=== PATIENT | female | born 1980 | race Caucasian/White ===

== ENCOUNTER 2017-01-23 06:12 | Emergency (ER) | payer BC, OTHER ==
[2017-01-23] MEDS ORDERED: Naloxone 0.4 MG/ML Syringe ONE (06:17)
[2017-01-23] MEDS ORDERED: Naloxone 0.4 MG/ML Syringe IVPUSH ONE (06:18)
[2017-01-23] MEDS ORDERED: Sodium Chloride 0.9% 1,000 ML IV ONE (06:18)
[2017-01-23] MEDS ORDERED: Sodium Chloride 0.9% 10 ML Syringe FLUSH PRN (06:18)
[2017-01-23] MEDS ORDERED: Sodium Chloride 0.9% 2.5 ML Syringe FLUSH PRN (06:18)
--- NOTE | 2017-01-23 06:26 | EDM.PDOC ---
ED HPI GENERAL MEDICAL PROBLEM - General Chief Complaint: Drug or Alcohol Abuse Stated Complaint: OVERDOSE Time Seen by Provider: 01/23/17 06:15 - History of Present Illness INITIAL COMMENTS - FREE TEXT/NARRATIVE: HISTORY AND PHYSICAL: History of present illness: The patient is a 36-year-old female who presents via EMS after her woke this morning at his usual time and found her in the bathroom with altered mental status and multiple pills on the floor. According to his testimony she has not been depressed recently and has no history but did have a prescription that was dated November 29 of this year for alprazolam 0.25 milligrams and the dispensed amount was #300 on November 29, 2016. They're only 3 of these tablets left but there were some on the floor as well. The patient also had a bottle which I saw of unknown white pills as well as Zofran. On EMS arrival she was with diminished mental status but was breathing spontaneously and remove the nasal trumpet. She was moving all extremities but not appropriately. The patient did not have any vomiting in route and further history will be obtained from the once available. According to the parents whom I spoke with the patient does have a history of a suicide attempt in 2002 she attempted to hang herself but she has not been currently exhibiting any signs of depression that they're aware of. The time of ingestion and exactly what she ingested( i.e. if she ingested other medications that we are unaware of) is unknown Review of systems: As per history of present illness and below otherwise all systems reviewed and negative. Past medical history: As per history of present illness and as reviewed below otherwise noncontributory. Surgical history: As per history of present illness and as reviewed below otherwise noncontributory. Social history: No reported history of drug or alcohol abuse. Family history: As per history of present illness and as reviewed below otherwise noncontributory. Physical exam: Gen.: Well-developed overweight female who is nontoxic and unresponsive to voice but does move arms and legs spontaneously but inappropriately. She is maintaining her airway and vital signs of been reviewed by me. HEENT: Atraumatic, normocephalic, pupils are mid range and sluggish negative for conjunctival pallor or scleral icterus, mucous membranes moist, throat clear , neck supple, nontender, trachea midline. Lungs: Clear to auscultation, breath sounds equal bilaterally, chest nontender. Breath sounds are diminished but there is no work of breathing. Heart: S1S2, regular, negative for clicks, rubs, or JVD. Abdomen: Soft, nondistended, nontender. Negative for masses or hepatosplenomegaly. Negative for costovertebral tenderness. Pelvis: Stable nontender. Genitourinary: Deferred. Rectal: Deferred. Extremities: Atraumatic, negative for cords or calf pain. Neurovascular unremarkable. Full range of motion passively and there is no bony tenderness defects or deformities appreciated Neuro: Difficult exam as patient does not follow commands and currently her Meeker Coma Scale is a 78. She is maintaining her airway and breathing spontaneously but will plan to electively intubate her. Skin: Normal turgor no evidence of any rashes or lesions and no visible evidence of any trauma is seen. Back: There is no visible evidence of any external trauma such as bruises abrasions and there are no midline deficits or defects in the thoracic or lumbar spine. Diagnostics: EKG CBC CMP EtOH aspirin and Tylenol levels TSH UA UDS UCG portable chest x-ray Therapeutics: IV O2 monitor IV fluids 0617: Case was discussed with Dr. Hung at [facility] ER and he accepts the patient for transfer. The flight team has been notified and on their arrival we will electively intubate this patient for transfer. I discussed with parents the current situation and the need for elective intubation and transfer and they were comfortable with this care plan. Currently the went home to get some information and is not present. 0638: Flight team is here at bedside and would like to hold giving any Narcan as we plan on intubating. They're going to perform this procedure which is being done semi-electively for her diminished mental status although she is arousable now to voice but is not purposeful and is still maintaining her airway with stable vitals. I will follow-up all testing results as they become available and we will do a portable chest x-ray prior to departure. Impression: Drug overdose with altered mental status Definitive disposition and diagnosis as appropriate pending reevaluation and review of above. - Related Data Allergies Allergy/AdvReac Type Severity Reaction Status Date / Time acetaminophen [From Tylenol] Allergy Hives Verified 01/24/16 12:44 Antihistamines - Alkylamine Allergy Anaphylactic Verified 01/24/16 12:44 Shock Opioids - Morphine Analogues Allergy Anaphylactic Verified 01/24/16 12:44 Shock Penicillins Allergy Rash Verified 01/24/16 12:44 phenytoin sodium Allergy Hives Verified 01/24/16 12:44 [From Dilantin] phenytoin sodium extended Allergy Hives Verified 01/24/16 12:44 [From Dilantin] vanilla whitfield Allergy Rash Uncoded 01/25/16 14:35 Home Meds: Home Meds ALPRAZolam [Xanax] 0.25 mg PO QID PRN 01/24/16 [History] Citalopram Hydrobromide [Celexa] 40 mg PO DAILY 01/24/16 [History] Past Medical History - Past Health History Medical/Surgical History: Denies Medical/Surgical History Other HEENT History: wears glasses Cardiovascular History: Reports: None Respiratory History: Reports: None Gastrointestinal History: Reports: None Genitourinary History: Reports: None AV SPECIALIST History: Reports: Musculoskeletal History: Reports: Fracture Other Musculoskeletal History: bilateral clavicles, ribs Neurological History: Reports: Headaches, Chronic, Seizure Other Neuro History: hx of one seizure at age 19 from alcohol poisening Psychiatric History: Reports: Anxiety, Depression Endocrine/Metabolic History: Reports: Obesity/BMI 30+ Hematologic History: Reports: None Immunologic History: Reports: None Oncologic (Cancer) History: Reports: None Dermatologic History: Reports: None - Infectious Disease History Infectious Disease History: Reports: Chicken Pox, MRSA - Past Surgical History HEENT Surgical History: Reports: Myringotomy w Tube(s), Tonsillectomy, Other ( See Below) Social & Family History - Family History Family Medical History: Noncontributory - Tobacco Use Smoking Status *Q: Current Every Day Smoker Years of Tobacco use: 11 Packs/Tins Daily: 0.8 - Recreational Drug Use Recreational Drug Use: No Drug Use in Last 12 Months: No ED ROS GENERAL - Review of Systems Review Of Systems: ROS reveals no pertinent complaints other than HPI. ED EXAM, GENERAL - Physical Exam Exam: See Below (See dictation) Course - Orders/Labs/Meds Orders: Active Orders 24 hr Category Date Time Status Cardiac Monitoring [RC] . DIRECTED Care 01/23/17 06:15 Active EKG Documentation Completion [RC] STAT Care 01/23/17 06:15 Active Oxygen Therapy, ED [RC] ASDIRECTED Care 01/23/17 06:15 Active Pulse Oximetry [RC] ASDIRECTED Care 01/23/17 06:15 Active Chest 1V Frontal [CR] Stat Exams 01/23/17 06:16 Ordered ACETAMINOPHEN [CHEM] Stat Lab 01/23/17 06:15 Ordered CBC WITH AUTO DIFF [HEME] Stat Lab 01/23/17 06:15 Ordered COMPREHENSIVE METABOLIC PN,CMP [CHEM] Stat Lab 01/23/17 06:15 Ordered DRUG SCREEN, URINE [URCHEM] Stat Lab 01/23/17 06:16 Uncollected ETHANOL BLOOD MEDICAL [CHEM] Stat Lab 01/23/17 06:15 Ordered HCG QUALITATIVE,URINE [URCHEM] Stat Lab 01/23/17 06:16 Uncollected SALICYLATE [CHEM] Stat Lab 01/23/17 06:15 Ordered TSH [CHEM] Stat Lab 01/23/17 06:15 Ordered UA W/MICROSCOPIC [URIN] Stat Lab 01/23/17 06:16 Uncollected Sodium Chloride 0.9% [Normal Saline] 1,000 ml Med 01/23/17 06:18 Active IV STAT Sodium Chloride 0.9% [Saline Flush] Med 01/23/17 06:18 Active 10 ml FLUSH ASDIRECTED PRN Sodium Chloride 0.9% [Saline Flush] Med 01/23/17 06:18 Active 2.5 ml FLUSH ASDIRECTED PRN Saline Lock Insert [OM.PC] Stat Oth 01/23/17 06:15 Ordered Medication Orders Sodium Chloride (Normal Saline) 1,000 mls @ 999 mls/hr IV STAT ONE Stop: 01/23/17 07:18 Sodium Chloride (Saline Flush) 10 ml FLUSH ASDIRECTED PRN PRN Reason: Keep Vein Open Sodium Chloride (Saline Flush) 2.5 ml FLUSH ASDIRECTED PRN PRN Reason: Keep Vein Open Meds: Medications Generic Name Dose Route Start Last Admin Trade Name Freq PRN Reason Stop Dose Admin Sodium Chloride 1,000 mls @ 999 mls/hr 01/23/17 06:18 Normal Saline IV 01/23/17 07:18 STAT ONE Sodium Chloride 10 ml 01/23/17 06:18 Saline Flush FLUSH ASDIRECTED PRN Keep Vein Open Sodium Chloride 2.5 ml 01/23/17 06:18 Saline Flush FLUSH ASDIRECTED PRN Keep Vein Open Discontinued Medications Generic Name Dose Route Start Last Admin Trade Name Neris PRN Reason Stop Dose Admin Naloxone HCl 2 mg 01/23/17 06:18 Narcan IVPUSH 01/23/17 06:19 ONETIME ONE Naloxone HCl Confirm 01/23/17 06:17 Narcan Administered 01/23/17 06:18 Dose 2 mg .ROUTE .STK-MED ONE Departure - Departure Time of Disposition: 06:41 Disposition: DC/Tfer to Acute Hospital 02 Condition: Critical Clinical Impression: Drug overdose Qualifiers: Encounter type: initial encounter Injury intent: undetermined intent Qualified Code(s): T50.904A - Poisoning by unspecified drugs, medicaments and biological substances, undetermined, initial encounter - Discharge Information Referrals: Esme Reaves NP [Primary Care Provider] - Forms: ED Department Discharge - My Orders Last 24 Hours: My Active Orders 01/23/17 06:15 Cardiac Monitoring [RC] . DIRECTED EKG Documentation Completion [RC] STAT Oxygen Therapy, ED [RC] ASDIRECTED Pulse Oximetry [RC] ASDIRECTED ACETAMINOPHEN [CHEM] Stat CBC WITH AUTO DIFF [HEME] Stat COMPREHENSIVE METABOLIC PN,CMP [CHEM] Stat ETHANOL BLOOD MEDICAL [CHEM] Stat SALICYLATE [CHEM] Stat TSH [CHEM] Stat Saline Lock Insert [OM.PC] Stat 01/23/17 06:16 Chest 1V Frontal [CR] Stat DRUG SCREEN, URINE [URCHEM] Stat HCG QUALITATIVE,URINE [URCHEM] Stat UA W/MICROSCOPIC [URIN] Stat 01/23/17 06:18 Sodium Chloride 0.9% [Normal Saline] 1,000 ml IV STAT Sodium Chloride 0.9% [Saline Flush] 10 ml FLUSH ASDIRECTED PRN Sodium Chloride 0.9% [Saline Flush] 2.5 ml FLUSH ASDIRECTED PRN - Assessment/Plan Last 24 Hours: My Active Orders 01/23/17 06:15 Cardiac Monitoring [RC] . DIRECTED EKG Documentation Completion [RC] STAT Oxygen Therapy, ED [RC] ASDIRECTED Pulse Oximetry [RC] ASDIRECTED ACETAMINOPHEN [CHEM] Stat CBC WITH AUTO DIFF [HEME] Stat COMPREHENSIVE METABOLIC PN,CMP [CHEM] Stat ETHANOL BLOOD MEDICAL [CHEM] Stat SALICYLATE [CHEM] Stat TSH [CHEM] Stat Saline Lock Insert [OM.PC] Stat 01/23/17 06:16 Chest 1V Frontal [CR] Stat DRUG SCREEN, URINE [URCHEM] Stat HCG QUALITATIVE,URINE [URCHEM] Stat UA W/MICROSCOPIC [URIN] Stat 01/23/17 06:18 Sodium Chloride 0.9% [Normal Saline] 1,000 ml IV STAT Sodium Chloride 0.9% [Saline Flush] 10 ml FLUSH ASDIRECTED PRN Sodium Chloride 0.9% [Saline Flush] 2.5 ml FLUSH ASDIRECTED PRN
[2017-01-23 07:01] LABS: CHLORIDE,CL 106 mmol/L (98-110); SODIUM,NA 139 mmol/L (136-146)
[2017-01-23 07:04] LABS: ACETAMINOPHEN < 3.0 ug/mL
--- NOTE | 2017-01-23 07:30 | PCM.SN ---
- Free Text/Narrative Note: Called by ER for help establishing emergent airway. Prior to our arrival flight team had attempted intubation and failed. On my arrival BVM respiration being performed with copious vomit noted, SpO2 75% at this time. Aggressive oral suctioning was performed then glide scope #3 attempted grade II view with copious vomit noted in the airway, however due to the severe anterior angle we were unable to place ETT. 11 OA was placed, BVM respirations were resumed, further oral suctioning was performed to help clear vomit. Once SpO2 had reached 85%, intubation was again attempted using glidescope #3, now there is no view, copious vomit is again noted, blind placement of 7.5 ETT cuffed was done. +BBS, +EtCO2 was noted. Chest X-ray is pending. Copious stomach contents was clear from the lungs via in-line ETT suctioning. OGT was placed were additional gastric content was suctioning via LIS. Currently HR - 80, SpO2 - 100% via FiO2 100% and RR - controlled 20. BP - 117/79.
[2017-01-23 09:36] VITALS: BP 131/66
--- NOTE | 2017-01-23 14:50 | CR ---
EXAM DATE: 01/23/17 PATIENT'S AGE: 36 Patient: BRITTANY VALDES Facility: [place], [place] Site . Site : [id number] Study: XRay Chest [id number]/31/2017 7:26:21 AM Ordering Physician: Doctor Vieira Final Report: INDICATION: Post intubation COMPARISON: none TECHNIQUE: Portable AP supine chest performed at 7:25 a.m. FINDINGS: The tip of the endotracheal tube lies 4.8 cm above the gilberto. There has been passage of a nasogastric decompression tube into the stomach. The lungs are clear. The heart, mediastinum and pulmonary vessels are of normal size. There is no evidence of pleural fluid. IMPRESSION: Proper position of endotracheal tube and nasogastric tube. Heart and lungs appear normal. Dictated by Shin Leonard MD @ Jan 23 2017 7:26AM (Electronic Signature) Report Signed by Proxy. NEVAEH
== END 2017-01-23 07:30 ==
LOC: MW.ED 06:12
DX: T42.4X1A Poisoning by benzodiazepines, accidental (unintentional), initial encounter (principal); T45.0X1A Poisoning by antiallergic and antiemetic drugs, accidental (unintentional), initial encounter; F17.210 Nicotine dependence, cigarettes, uncomplicated; Z88.6 Allergy status to analgesic agent; Z88.5 Allergy status to narcotic agent; Z88.0 Allergy status to penicillin; Z79.899 Other long term (current) drug therapy; Z96.22 Myringotomy tube(s) status; F41.9 Anxiety disorder, unspecified; F32.9 Major depressive disorder, single episode, unspecified; E66.9 Obesity, unspecified; Z98.890 Other specified postprocedural states
CPT/HCPCS: 31500; 36415; 51702; 71010; 80053; 80305; 81001; 81025; 84443; 85025; 93005; 96360; 99291; 99292; G0480; J7040; 99285

== ENCOUNTER 2017-05-20 13:47 | Emergency (ER) | payer BC ==
[2017-05-20] MEDS ORDERED: Sodium Chloride 0.9% 10 ML Syringe FLUSH PRN (15:03)
[2017-05-20] MEDS ORDERED: Sodium Chloride 0.9% 2.5 ML Syringe FLUSH PRN (15:03)
[2017-05-20] MEDS ORDERED: Ondansetron 4 MG/2 ML SDV IVPUSH ONE (15:06)
--- NOTE | 2017-05-20 15:06 | EDM.PDOC ---
ED HPI GENERAL MEDICAL PROBLEM - General Chief Complaint: Abdominal Pain Stated Complaint: PAIN ON LEFT SIDE OF ABDOMEN AND BACK Time Seen by Provider: 05/20/17 15:04 Source of Information: Reports: Patient History Limitations: Reports: No Limitations - History of Present Illness INITIAL COMMENTS - FREE TEXT/NARRATIVE: HISTORY AND PHYSICAL: []37-year-old female presenting with left-sided and mid abdominal pain. History of Present Illness: []Pain started on 2 days ago after she was eating. Review of Systems: As per history of present illness and below otherwise all systems reviewed and negative. Past medical history: As per history of present illness and as reviewed below otherwise noncontributory. Surgical history: As per history of present illness and as reviewed below otherwise noncontributory. Social history: No reported history of drug or alcohol abuse. Family history: As per history of present illness and as reviewed below otherwise noncontributory. Physical exam: Patient looks to be distressed she looks like she has been crying. She is alert and oriented answering questions appropriately in full sentences without shortness of breath. HEENT: Atraumatic, normocehpalic, pupils reactive, negative for conjunctival pallor or scleral icterus, mucous membranes moist, throat clear, neck supple, nontender, trachea midline. Lungs: Clear to auscultation, breath sounds equal bilaterally, chest non tender. Heart: S1S2, regular, negative for clicks, rubs, or JVD. Abdomen: Soft, nondistended, tender with palpation to the right epigastric area. Negative for masses or hepatossplenmegaly. Negative for costovertebral tenderness. Pelvis: Stable nontender. Genitourinary: Deferred. Rectal: Deferred Extremities: Atraumatic, negative for cords or calf pain. Neurovascular unremarkable. Neuro: Awake, alert, oriented. Cranial nerves II through XII unremarkable. Cerebellum unremarkable. Motor and sensory unremarkable throughout. Exam nonfocal. Diagnostics: [CBC CMP amylase lipase CT urinalysis hCG Limited abdominal ultrasound] Therapeutics: []Zofran morphine Impression: [] Plan: [] Definitive disposition and diagnosis as appropriate pending reevaluation and review of above. Onset: Sudden (4days) abdominal pain Pain Score (Numeric/FACES): 8 - Related Data Allergies Allergy/AdvReac Type Severity Reaction Status Date / Time acetaminophen [From Tylenol] Allergy Hives Verified 05/20/17 13:58 Antihistamines - Alkylamine Allergy Anaphylactic Verified 05/20/17 13:58 Shock Opioids - Morphine Analogues Allergy Anaphylactic Verified 05/20/17 13:58 Shock Penicillins Allergy Rash Verified 05/20/17 13:58 phenytoin sodium Allergy Hives Verified 05/20/17 13:58 [From Dilantin] phenytoin sodium extended Allergy Hives Verified 05/20/17 13:58 [From Dilantin] vanilla whitfield Allergy Rash Uncoded 05/20/17 13:58 Home Meds: Home Meds Ondansetron [Zofran ODT] 4 mg PO Q8H #12 tab.dis 05/20/17 [Rx] Sertraline HCl [Zoloft] 100 mg PO DAILY 05/20/17 [History] Past Medical History - Past Health History Medical/Surgical History: Denies Medical/Surgical History Other HEENT History: wears glasses Cardiovascular History: Reports: None Respiratory History: Reports: None Gastrointestinal History: Reports: None Genitourinary History: Reports: None 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: Musculoskeletal History: Reports: Fracture Other Musculoskeletal History: bilateral clavicles, ribs Neurological History: Reports: Headaches, Chronic, Seizure Other Neuro History: hx of one seizure at age 19 from alcohol poisening Psychiatric History: Reports: Anxiety, Depression Endocrine/Metabolic History: Reports: Obesity/BMI 30+ Hematologic History: Reports: None Immunologic History: Reports: None Oncologic (Cancer) History: Reports: None Dermatologic History: Reports: None - Infectious Disease History Infectious Disease History: Reports: None - Past Surgical History Head Surgeries/Procedures: Reports: None HEENT Surgical History: Reports: Myringotomy w Tube(s), Tonsillectomy GI Surgical History: Reports: Appendectomy Musculoskeletal Surgical History: Reports: Shoulder Surgery Social & Family History - Family History Family Medical History: Noncontributory - Tobacco Use Smoking Status *Q: Current Every Day Smoker Years of Tobacco use: 10 Packs/Tins Daily: 0.5 - Caffeine Use Caffeine Use: Reports: Soda - Recreational Drug Use Recreational Drug Use: No Drug Use in Last 12 Months: No ED ROS GENERAL - Review of Systems Review Of Systems: ROS reveals no pertinent complaints other than HPI. ED EXAM, GI/ABD - Physical Exam Exam: See Below (see dictation) Course - Vital Signs Last Recorded V/S: Last Vital Signs Temp 36.6 C 05/20/17 16:44 Pulse 62 05/20/17 16:44 Resp 18 05/20/17 13:59 BP 115/38 L 05/20/17 16:44 Pulse Ox 97 05/20/17 16:44 - Orders/Labs/Meds Orders: Active Orders 24 hr Category Date Time Status Abdomen Ltd [US] Stat Exams 05/20/17 15:03 Taken Chest 2V [CR] Stat Exams 05/20/17 15:03 Taken Sodium Chloride 0.9% [Saline Flush] Med 05/20/17 15:03 Active 10 ml FLUSH ASDIRECTED PRN Sodium Chloride 0.9% [Saline Flush] Med 05/20/17 15:03 Active 2.5 ml FLUSH ASDIRECTED PRN Saline Lock Insert [OM.PC] Stat Oth 05/20/17 15:03 Ordered Medication Orders Sodium Chloride (Saline Flush) 10 ml FLUSH ASDIRECTED PRN PRN Reason: Keep Vein Open Sodium Chloride (Saline Flush) 2.5 ml FLUSH ASDIRECTED PRN PRN Reason: Keep Vein Open Labs: Laboratory Tests 05/20/17 05/20/17 05/20/17 Range/Units 14:50 14:50 15:12 WBC 9.14 (4.0-11.0) K/uL RBC 5.09 (4.30-5.90) M/uL Hgb 15.1 (12.0-16.0) g/dL Hct 44.9 (36.0-46.0) % MCV 88.2 (80.0-98.0) fL MCH 29.7 (27.0-32.0) pg MCHC 33.6 (31.0-37.0) g/dL RDW Std Deviation 44.2 (28.0-62.0) fl RDW Coeff of John 14 (11.0-15.0) % Plt Count 283 (150-400) K/uL MPV 11.10 (7.40-12.00) fL Add Manual Diff YES Neutrophils % (Manual) 49 (48.0-80.0) % Band Neutrophils % 9 % Lymphocytes % (Manual) 33 (16.0-40.0) % Monocytes % (Manual) 3 (0.0-15.0) % Eosinophils % (Manual) 2 (0.0-7.0) % Basophils % (Manual) 4 H (0.0-1.5) % Nucleated RBC % 0.0 /100WBC Absolute Seg Neuts 4.5 (1.4-5.7) Band Neutrophils # 0.8 Lymphocytes # (Manual) 3.0 H (0.6-2.4) Monocytes # (Manual) 0.3 (0.0-0.8) Eosinophils # (Manual) 0.2 (0.0-0.7) Basophils # (Manual) 0.4 H (0.0-0.1) Nucleated RBCs # 0 K/uL Sodium (136-146) mmol/L Potassium (3.5-5.1) mmol/L Chloride (98-110) mmol/L Carbon Dioxide (21-31) mmol/L BUN (6.0-23.0) mg/dL Creatinine (0.6-1.5) mg/dL Est Cr Clr Drug Dosing mL/min Estimated GFR (MDRD) ml/min Glucose (60-110) mg/dL Calcium (8.8-10.8) mg/dL Total Bilirubin (0.1-1.5) mg/dL AST (5-40) IU/L ALT (8-54) IU/L Alkaline Phosphatase (40-150) Total Protein (6.0-8.0) g/dL Albumin (3.5-5.0) g/dL Globulin (2.0-3.5) g/dL Albumin/Globulin Ratio (1.3-2.8) Amylase (10-90) U/L Lipase (7-80) U/L Urine Color YELLOW Urine Appearance CLOUDY Urine pH 6.0 (5.0-8.0) Ur Specific [place] >= 1.030 (1.001-1.035) Urine Protein NEGATIVE (NEGATIVE) mg/dL Urine Glucose (UA) NEGATIVE (NEGATIVE) mg/dL Urine Ketones NEGATIVE (NEGATIVE) mg/dL Urine Occult Blood NEGATIVE (NEGATIVE) Urine Nitrite NEGATIVE (NEGATIVE) Urine Bilirubin NEGATIVE (NEGATIVE) Urine Urobilinogen 0.2 (<2.0) EU/dL Ur Leukocyte Esterase MODERATE (NEGATIVE) Urine RBC 0-1 (0-2/HPF) Urine WBC 50-55 (0-5/HPF) Ur Epithelial Cells FEW (NONE-FEW) Urine Bacteria 1+ H (NEGATIVE) Urine HCG, Qual NEGATIVE (NEGATIVE) 05/20/17 Range/Units 15:12 WBC (4.0-11.0) K/uL RBC (4.30-5.90) M/uL Hgb (12.0-16.0) g/dL Hct (36.0-46.0) % MCV (80.0-98.0) fL MCH (27.0-32.0) pg MCHC (31.0-37.0) g/dL RDW Std Deviation (28.0-62.0) fl RDW Coeff of John (11.0-15.0) % Plt Count (150-400) K/uL MPV (7.40-12.00) fL Add Manual Diff Neutrophils % (Manual) (48.0-80.0) % Band Neutrophils % % Lymphocytes % (Manual) (16.0-40.0) % Monocytes % (Manual) (0.0-15.0) % Eosinophils % (Manual) (0.0-7.0) % Basophils % (Manual) (0.0-1.5) % Nucleated RBC % /100WBC Absolute Seg Neuts (1.4-5.7) Band Neutrophils # Lymphocytes # (Manual) (0.6-2.4) Monocytes # (Manual) (0.0-0.8) Eosinophils # (Manual) (0.0-0.7) Basophils # (Manual) (0.0-0.1) Nucleated RBCs # K/uL Sodium 138 (136-146) mmol/L Potassium 3.9 (3.5-5.1) mmol/L Chloride 108 (98-110) mmol/L Carbon Dioxide 21 (21-31) mmol/L BUN 14 (6.0-23.0) mg/dL Creatinine 0.7 (0.6-1.5) mg/dL Est Cr Clr Drug Dosing 100.94 mL/min Estimated GFR (MDRD) > 60.0 ml/min Glucose 121 H (60-110) mg/dL Calcium 9.1 (8.8-10.8) mg/dL Total Bilirubin 0.5 (0.1-1.5) mg/dL AST 23 (5-40) IU/L ALT 32 (8-54) IU/L Alkaline Phosphatase 78 (40-150) Total Protein 7.0 (6.0-8.0) g/dL Albumin 4.3 (3.5-5.0) g/dL Globulin 2.7 (2.0-3.5) g/dL Albumin/Globulin Ratio 1.6 (1.3-2.8) Amylase 24 (10-90) U/L Lipase < 9 (7-80) U/L Urine Color Urine Appearance Urine pH (5.0-8.0) Ur Specific [place] (1.001-1.035) Urine Protein (NEGATIVE) mg/dL Urine Glucose (UA) (NEGATIVE) mg/dL Urine Ketones (NEGATIVE) mg/dL Urine Occult Blood (NEGATIVE) Urine Nitrite (NEGATIVE) Urine Bilirubin (NEGATIVE) Urine Urobilinogen (<2.0) EU/dL Ur Leukocyte Esterase (NEGATIVE) Urine RBC (0-2/HPF) Urine WBC (0-5/HPF) Ur Epithelial Cells (NONE-FEW) Urine Bacteria (NEGATIVE) Urine HCG, Qual (NEGATIVE) Meds: Medications Generic Name Dose Route Start Last Admin Trade Name Freq PRN Reason Stop Dose Admin Sodium Chloride 10 ml 05/20/17 15:03 Saline Flush FLUSH ASDIRECTED PRN Keep Vein Open Sodium Chloride 2.5 ml 05/20/17 15:03 Saline Flush FLUSH ASDIRECTED PRN Keep Vein Open Discontinued Medications Generic Name Dose Route Start Last Admin Trade Name Freq PRN Reason Stop Dose Admin Ketorolac Tromethamine 30 mg 05/20/17 15:08 05/20/17 15:34 Toradol IVPUSH 05/20/17 15:09 30 mg ONETIME ONE Administration Ondansetron HCl 4 mg 05/20/17 15:06 05/20/17 15:35 Zofran IVPUSH 05/20/17 15:07 4 mg ONETIME ONE Administration Departure - Departure Time of Disposition: 16:52 Disposition: Home, Self-Care 01 Condition: Good Clinical Impression: Abdominal pain Qualifiers: Abdominal location: right upper quadrant Qualified Code(s): R10.11 - Right upper quadrant pain - Discharge Information Prescriptions: Ondansetron [Zofran ODT] 4 mg PO Q8H #12 tab.dis Referrals: PCP,None [Primary Care Provider] - Forms: ED Department Discharge Additional Instructions: The following information is given to patients seen in the emergency department who are being discharged to home. This information is to outline your options for follow-up care. We provide all patients seen in our emergency department with a follow-up referral. The need for follow-up, as well as the timing and circumstances, are variable depending upon the specifics of your emergency department visit. If you don't have a primary care physician on staff, we will provide you with a referral. We always advise you to contact your personal physician following an emergency department visit to inform them of the circumstance of the visit and for follow-up with them and/or the need for any referrals to a consulting specialist. The emergency department will also refer you to a specialist when appropriate. This referral assures that you have the opportunity for followup care with a specialist. All of these measure are taken in an effort to provide you with optimal care, which includes your followup. Under all circumstances we always encourage you to contact your private physician who remains a resource for coordinating your care. When calling for followup care, please make the office aware that this follow-up is from your recent emergency room visit. If for any reason you are refused follow-up, please contact the [facility] emergency department at and asked to speak to the emergency department charge nurse. Prescription has been written for hydrocodone/APAP 10/325 one 3 times a day when necessary pain #12 no refill Prescription for ODT Zofran 4 mg electronically [facility] Follow-up with your primary care provider in 2-3 days - My Orders Last 24 Hours: My Active Orders 05/20/17 15:03 Abdomen Ltd [US] Stat Chest 2V [CR] Stat Sodium Chloride 0.9% [Saline Flush] 10 ml FLUSH ASDIRECTED PRN Sodium Chloride 0.9% [Saline Flush] 2.5 ml FLUSH ASDIRECTED PRN Saline Lock Insert [OM.PC] Stat - Assessment/Plan Last 24 Hours: My Active Orders 05/20/17 15:03 Abdomen Ltd [US] Stat Chest 2V [CR] Stat Sodium Chloride 0.9% [Saline Flush] 10 ml FLUSH ASDIRECTED PRN Sodium Chloride 0.9% [Saline Flush] 2.5 ml FLUSH ASDIRECTED PRN Saline Lock Insert [OM.PC] Stat
[2017-05-20] MEDS ORDERED: Ketorolac 30 MG/ML SDV IVPUSH ONE (15:08)
[2017-05-20 15:42] LABS: CHLORIDE,CL 108 mmol/L (98-110); SODIUM,NA 138 mmol/L (136-146)
[2017-05-20 16:45] VITALS: BP 115/38
--- NOTE | 2017-05-21 08:09 | CR ---
EXAM DATE: 05/20/17 PATIENT'S AGE: 37 Patient: BRITTANY VALDES Facility: [place], [place] Site . Site : 1980 Study: XRay Chest [id number] 3:55:47 PM Ordering Physician: Doctor Vieira Final Report: INDICATION: Pain. Technique: PA and lateral chest x-ray. Findings: Platelike atelectasis lower retrosternal region on lateral view. Lungs otherwise clear. Heart size normal. Chest otherwise negative without acute disease. Dictated by Daniel Helton MD @ May 20 2017 4:11PM (Electronic Signature) Report Signed by Proxy. NEVAEH
--- NOTE | 2017-05-21 08:10 | US ---
EXAM DATE: 05/20/17 PATIENT'S AGE: 37 Patient: BRITTANY VALDES Facility: [place], [place] Site . Site : 1980 Study: US Abdomen [id number] 4:25:27 PM Ordering Physician: Doctor Vieira Final Report: INDICATION: ABD PAIN INDICATION: Abdominal pain. FINDINGS: The liver is echogenic consistent with diffuse fatty infiltration. No large masses or intrahepatic biliary dilatation is identified. The gallbladder is partially fluid-filled, no gallstones or wall thickening is identified. The common bile duct is normal at 5 mm. The pancreas is not well seen due to obscuring bowel gas. The right kidney is 11.6 cm in length and there is no hydronephrosis. IMPRESSION: Fatty infiltration of the liver is identified. No gallstones or biliary dilatation is seen. No abnormal fluid collections are seen. Dictated by Darin Garica MD @ 05/20/2017 4:47:34 PM Dictated by: Darin Garcia MD @ 05/20/2017 16:47:39 (Electronic Signature) Report Signed by Proxy. [facility]
== END 2017-05-20 17:15 | disposition home or self-care (01) ==
LOC: MW.ED 13:47
DX: R10.11 Right upper quadrant pain (principal); F17.210 Nicotine dependence, cigarettes, uncomplicated; Z88.0 Allergy status to penicillin; Z88.5 Allergy status to narcotic agent; Z88.8 Allergy status to other drugs, medicaments and biological substances; Z79.899 Other long term (current) drug therapy
CPT/HCPCS: 36415; 71020; 76705; 80053; 81001; 81025; 82150; 83690; 85025; 87086; 96374; 96375; 99284; J1885; J2405

== ENCOUNTER 2017-08-26 11:24 | Emergency (ER) | payer BC ==
[2017-08-26] MEDS ORDERED: Ketorolac 30 MG/ML SDV IVPUSH ONE (12:30)
[2017-08-26] MEDS ORDERED: Sodium Chloride 0.9% 1,000 ML IV ONE (12:30)
[2017-08-26] MEDS ORDERED: Ondansetron 4 MG/2 ML SDV IVPUSH ONE (12:30)
--- NOTE | 2017-08-26 12:32 | EDM.PDOC ---
ED HPI GENERAL MEDICAL PROBLEM - General Chief Complaint: Headache Stated Complaint: MIGRAINE FOR 3 DAYS Time Seen by Provider: 08/26/17 12:00 Source of Information: Reports: Patient History Limitations: Reports: No Limitations - History of Present Illness INITIAL COMMENTS - FREE TEXT/NARRATIVE: HISTORY AND PHYSICAL: History of present illness: [Patient comes to the emergency room complaining of a migraine headache. Has been present for the last 3 days. She has taken Aleve and ibuprofen without improvement in her symptoms. This is not the worst headache she ever had. She has a history of migraine headaches that occur occasionally. Usually she can improve with [id number] NSAIDs, but this time it has been ineffective. No blurred vision or double vision. She has not recently been ill or had any infections. No fever or chills. Denies face pain, runny nose sore, throat cough and earaches. No nausea or vomiting. She denies light sensitivity but complains of sensitivity to sound. No abdominal pain chest pain shortness of breath or difficulty breathing. She is allergic to many medications which are updated in her chart. She typically follows with Esme Reaves in [place]. Denies and. Started today.] Review of systems: As per history of present illness and below otherwise all systems reviewed and negative. Past medical history: As per history of present illness and as reviewed below otherwise noncontributory. Surgical history: As per history of present illness and as reviewed below otherwise noncontributory. Social history: No reported history of drug or alcohol abuse. Family history: As per history of present illness and as reviewed below otherwise noncontributory. Physical exam: HEENT: Atraumatic, normocephalic. TMs are pearly mcmillan and without erythema bilaterally. Oral mucous membranes are pink and moist without tonsillar swelling erythema or exudate. Neck supple no lymphadenopathy. Face is nontender with palpation. No broken or decaying teeth. PERRLA. EOMI. Lungs: Clear to auscultation, breath sounds equal bilaterally. Heart: S1S2, regular rate and rhythm. Abdomen: Soft, nondistended, nontender. Pelvis: Stable nontender. Genitourinary: Deferred. Rectal: Deferred. Extremities: Atraumatic, full range of motion no abnormalities noted. Neurovascular unremarkable. Neuro: Awake, alert, oriented. Motor and sensory unremarkable throughout. Exam nonfocal. Therapeutics: [1 L normal saline, 4 mg Zofran IV, Toradol 30 mg IV] Impression: [Headache] Plan: [Patient feels significantly improved following fluids and medications. Would like to be discharged home. She is instructed to go home to rest in a cool, dark room and take home meds prn. She is in agreement w/ today's plan. F/u w/ PCP Strict return precautions are reviewed. ] Definitive disposition and diagnosis as appropriate pending reevaluation and review of above. Headache Pain Score (Numeric/FACES): 6 - Related Data Allergies Allergy/AdvReac Type Severity Reaction Status Date / Time acetaminophen [From Tylenol] Allergy Hives Verified 08/26/17 11:40 Antihistamines - Alkylamine Allergy Anaphylactic Verified 08/26/17 11:40 Shock Opioids - Morphine Analogues Allergy Anaphylactic Verified 08/26/17 11:40 Shock Penicillins Allergy Rash Verified 08/26/17 11:40 phenytoin sodium Allergy Hives Verified 08/26/17 11:40 [From Dilantin] phenytoin sodium extended Allergy Hives Verified 08/26/17 11:40 [From Dilantin] vanilla whitfield Allergy Rash Uncoded 08/26/17 11:40 Home Meds: Home Meds Ondansetron [Zofran ODT] 4 mg PO Q8H #12 tab.dis 05/20/17 [Rx] Sertraline HCl [Zoloft] 100 mg PO DAILY 05/20/17 [History] Levothyroxine 25 mcg PO ACBREAKFAST 08/26/17 [History] metFORMIN [Glucophage] 500 mg PO TID 08/26/17 [History] Past Medical History - Past Health History Medical/Surgical History: Denies Medical/Surgical History Other HEENT History: wears glasses Cardiovascular History: Reports: None Respiratory History: Reports: None Gastrointestinal History: Reports: None Genitourinary History: Reports: None 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: Reports: Polycystic Ovaries, Musculoskeletal History: Reports: Fracture Other Musculoskeletal History: bilateral clavicles, ribs Neurological History: Reports: Headaches, Chronic, Seizure Other Neuro History: hx of one seizure at age 19 from alcohol poisening Psychiatric History: Reports: Anxiety, Depression Endocrine/Metabolic History: Reports: Obesity/BMI 30+ Hematologic History: Reports: None Immunologic History: Reports: None Oncologic (Cancer) History: Reports: None Dermatologic History: Reports: None - Infectious Disease History Infectious Disease History: Reports: Chicken Pox - Past Surgical History Head Surgeries/Procedures: Reports: None HEENT Surgical History: Reports: Myringotomy w Tube(s), Tonsillectomy GI Surgical History: Reports: Appendectomy Musculoskeletal Surgical History: Reports: Shoulder Surgery Social & Family History - Family History Family Medical History: Noncontributory - Tobacco Use Smoking Status *Q: Current Every Day Smoker Years of Tobacco use: 10 Packs/Tins Daily: 0.5 - Caffeine Use Caffeine Use: Reports: None - Recreational Drug Use Recreational Drug Use: No Drug Use in Last 12 Months: No ED ROS GENERAL - Review of Systems Review Of Systems: ROS reveals no pertinent complaints other than HPI. - Physical Exam Exam: See Below Course - Vital Signs Last Recorded V/S: Last Vital Signs Temp 98.0 F 08/26/17 14:15 Pulse 62 08/26/17 14:15 Resp 16 08/26/17 14:15 BP 115/65 08/26/17 14:15 Pulse Ox 98 08/26/17 14:15 - Orders/Labs/Meds Meds: Medications Discontinued Medications Generic Name Dose Route Start Last Admin Trade Name Freq PRN Reason Stop Dose Admin Sodium Chloride 1,000 mls @ 999 mls/hr 08/26/17 12:30 08/26/17 12:45 Normal Saline IV 08/26/17 13:30 999 mls/hr STAT ONE Administration Ketorolac Tromethamine 30 mg 08/26/17 12:30 08/26/17 12:52 Toradol IVPUSH 08/26/17 12:31 30 mg ONETIME ONE Administration Ondansetron HCl 4 mg 08/26/17 12:30 08/26/17 12:47 Zofran IVPUSH 08/26/17 12:31 4 mg ONETIME ONE Administration Departure - Departure Time of Disposition: 13:50 Disposition: Home, Self-Care 01 Condition: Good Clinical Impression: Headache - Discharge Information Instructions: Migraine Headache Referrals: Esme Reaves ARABIC PROFESSOR [Primary Care Provider] - Forms: ED Department Discharge Additional Instructions: The following information is given to patients seen in the emergency department who are being discharged to home. This information is to outline your options for follow-up care. We provide all patients seen in our emergency department with a follow-up referral. The need for follow-up, as well as the timing and circumstances, are variable depending upon the specifics of your emergency department visit. If you don't have a primary care physician on staff, we will provide you with a referral. We always advise you to contact your personal physician following an emergency department visit to inform them of the circumstance of the visit and for follow-up with them and/or the need for any referrals to a consulting specialist. The emergency department will also refer you to a specialist when appropriate. This referral assures that you have the opportunity for follow-up care with a specialist. All of these measure are taken in an effort to provide you with optimal care, which includes your follow-up. Under all circumstances we always encourage you to contact your private physician who remains a resource for coordinating your care. When calling for follow-up care, please make the office aware that this follow-up is from your recent emergency room visit. If for any reason you are refused follow-up, please contact the [facility] emergency department at and asked to speak to the emergency department charge nurse. [facility] [address] [place] [id number] Follow-up with your primary care provider or at the clinic listed above in 48- 72 hours. Go home and rest in a cool dark room. Continue her home medications. Return to ER as needed as discussed.
[2017-08-26 14:31] VITALS: BP 115/65
== END 2017-08-26 14:15 | disposition home or self-care (01) ==
LOC: MW.ED 11:24
DX: R51 Headache (principal); F17.210 Nicotine dependence, cigarettes, uncomplicated; F32.9 Major depressive disorder, single episode, unspecified; Z79.899 Other long term (current) drug therapy; Z91.018 Allergy to other foods; Z88.0 Allergy status to penicillin; Z88.5 Allergy status to narcotic agent; Z88.6 Allergy status to analgesic agent; Z88.8 Allergy status to other drugs, medicaments and biological substances
CPT/HCPCS: 96361; 96374; 96375; 99283; J1885; J2405; J7040

== ENCOUNTER 2017-09-21 13:36 | Emergency (ER) | payer BC ==
[2017-09-21] MEDS ORDERED: methylPREDNISolone Sodium Succinate 125 MG/2 ML SDV IVPUSH ONE (13:37)
[2017-09-21] MEDS ORDERED: Albuterol/Ipratropium 3.0-0.5 MG/3 ML Neb Soln NEB ONE (13:38)
--- NOTE | 2017-09-21 13:39 | EDM.PDOC ---
ED HPI GENERAL MEDICAL PROBLEM - General Chief Complaint: Respiratory Problem Stated Complaint: SHORTNESS OF BREATH Time Seen by Provider: 09/21/17 13:39 Source of Information: Reports: Patient - History of Present Illness INITIAL COMMENTS - FREE TEXT/NARRATIVE: HISTORY AND PHYSICAL: History of present illness: [Patient presents from only physical shortness of breath and cough She is nicotine dependent female she did receive a DuoNeb influenza and strep testing well at the [facility] physical walk-in clinic which were negative She complains of chest chest tightness but is able speak in full sentences no accessory muscles she does have persistent cough no fever nausea vomiting chills sweats no chest pain headache dizziness or palpitation no bowel or urine symptoms ] Review of systems: As per history of present illness and below otherwise all systems reviewed and negative. Past medical history: As per history of present illness and as reviewed below otherwise noncontributory. Surgical history: As per history of present illness and as reviewed below otherwise noncontributory. Social history: No reported history of drug or alcohol abuse. Family history: As per history of present illness and as reviewed below otherwise noncontributory. Physical exam: HEENT: Atraumatic, normocephalic, pupils reactive, negative for conjunctival pallor or scleral icterus, mucous membranes moist, throat clear, neck supple, nontender, trachea midline. Lungs: Clear to auscultation, breath sounds equal bilaterally, chest nontender.post DuoNeb and Solu-Medrol Heart: S1S2, regular, negative for clicks, rubs, or JVD. Abdomen: Soft, nondistended, nontender. Negative for masses or hepatosplenomegaly. Negative for costovertebral tenderness. Pelvis: Stable nontender. Genitourinary: Deferred. Rectal: Deferred. Extremities: Atraumatic, negative for cords or calf pain. Neurovascular unremarkable. Neuro: Awake, alert, oriented. Cranial nerves II through XII unremarkable. Cerebellum unremarkable. Motor and sensory unremarkable throughout. Exam nonfocal. Diagnostics: [ CBC CMP troponin EKG Chest 1 view ] Therapeutics: [DuoNeb Solu-Medrol 125 mg IVZ-Panchito 250 mg dosing Z-Panchito Medrol Dosepak HFA Impression: [ acute bronchitis ] Definitive disposition and diagnosis as appropriate pending reevaluation and review of above. - Related Data Allergies Allergy/AdvReac Type Severity Reaction Status Date / Time acetaminophen [From Tylenol] Allergy Hives Verified 09/21/17 13:41 Antihistamines - Alkylamine Allergy Anaphylactic Verified 09/21/17 13:41 Shock Opioids - Morphine Analogues Allergy Anaphylactic Verified 09/21/17 13:41 Shock Penicillins Allergy Rash Verified 09/21/17 13:41 phenytoin sodium Allergy Hives Verified 09/21/17 13:41 [From Dilantin] phenytoin sodium extended Allergy Hives Verified 09/21/17 13:41 [From Dilantin] vanilla whitfield Allergy Rash Uncoded 09/21/17 13:41 Home Meds: Home Meds Sertraline HCl [Zoloft] 100 mg PO DAILY 05/20/17 [History] Levothyroxine 25 mcg PO ACBREAKFAST 08/26/17 [History] metFORMIN [Glucophage] 500 mg PO TID 08/26/17 [History] Past Medical History - Past Health History Medical/Surgical History: Denies Medical/Surgical History Other HEENT History: wears glasses Cardiovascular History: Reports: None Respiratory History: Reports: None Gastrointestinal History: Reports: None Genitourinary History: Reports: None [employer] History: Reports: Polycystic Ovaries, Musculoskeletal History: Reports: Fracture Other Musculoskeletal History: bilateral clavicles, ribs Neurological History: Reports: Headaches, Chronic, Seizure Other Neuro History: hx of one seizure at age 19 from alcohol poisening Psychiatric History: Reports: Anxiety, Depression Endocrine/Metabolic History: Reports: Obesity/BMI 30+ Hematologic History: Reports: None Immunologic History: Reports: None Oncologic (Cancer) History: Reports: None Dermatologic History: Reports: None - Infectious Disease History Infectious Disease History: Reports: Chicken Pox - Past Surgical History Head Surgeries/Procedures: Reports: None HEENT Surgical History: Reports: Myringotomy w Tube(s), Tonsillectomy GI Surgical History: Reports: Appendectomy Musculoskeletal Surgical History: Reports: Shoulder Surgery Social & Family History - Family History Family Medical History: Noncontributory - Tobacco Use Smoking Status *Q: Current Every Day Smoker Years of Tobacco use: 10 Packs/Tins Daily: 0.5 - Caffeine Use Caffeine Use: Reports: None - Recreational Drug Use Recreational Drug Use: No Drug Use in Last 12 Months: No ED ROS GENERAL - Review of Systems Review Of Systems: ROS reveals no pertinent complaints other than HPI. ED EXAM, GENERAL - Physical Exam Exam: See Below Course - Vital Signs Last Recorded V/S: Last Vital Signs Temp 98.4 F 09/21/17 13:38 Pulse 106 H 09/21/17 13:38 Resp 22 H 09/21/17 13:38 BP 137/67 09/21/17 13:38 Pulse Ox 97 09/21/17 13:38 - Orders/Labs/Meds Orders: Active Orders 24 hr Category Date Time Status EKG Documentation Completion [RC] STAT Care 09/21/17 13:38 Active RT Aerosol Therapy [RC] ASDIRECTED Care 09/21/17 13:38 Active UA W/MICROSCOPIC [URIN] Stat Lab 09/21/17 13:38 Ordered Labs: Laboratory Tests 09/21/17 09/21/17 Range/Units 13:49 13:49 WBC 7.86 (4.0-11.0) K/uL RBC 5.02 (4.30-5.90) M/uL Hgb 14.3 (12.0-16.0) g/dL Hct 42.8 (36.0-46.0) % MCV 85.3 (80.0-98.0) fL MCH 28.5 (27.0-32.0) pg MCHC 33.4 (31.0-37.0) g/dL RDW Std Deviation 42.0 (28.0-62.0) fl RDW Coeff of John 14 (11.0-15.0) % Plt Count 258 (150-400) K/uL MPV 11.30 (7.40-12.00) fL Neut % (Auto) 61.2 (48.0-80.0) % Lymph % (Auto) 26.5 (16.0-40.0) % Bond % (Auto) 9.5 (0.0-15.0) % Eos % (Auto) 2.4 (0.0-7.0) % Baso % (Auto) 0.4 (0.0-1.5) % Neut # (Auto) 4.8 (1.4-5.7) K/uL Lymph # (Auto) 2.1 (0.6-2.4) K/uL Bond # (Auto) 0.8 (0.0-0.8) K/uL Eos # (Auto) 0.2 (0.0-0.7) K/uL Baso # (Auto) 0.0 (0.0-0.1) K/uL Nucleated RBC % 0.0 /100WBC Nucleated RBCs # 0 K/uL Sodium 136 (136-145) mmol/L Potassium 3.4 L (3.5-5.1) mmol/L Chloride 100 (98-107) mmol/L Carbon Dioxide 26.2 (21.0-32.0) mmol/L BUN 11 (7.0-18.0) mg/dL Creatinine 0.9 (0.6-1.0) mg/dL Est Cr Clr Drug Dosing 78.51 mL/min Estimated GFR (MDRD) > 60.0 ml/min Glucose 240 H (74-106) mg/dL Calcium 9.3 (8.5-10.1) mg/dL Total Bilirubin 0.3 (0.2-1.0) mg/dL AST 23 (15-37) IU/L ALT 36 (14-63) IU/L Alkaline Phosphatase 88 (46-116) U/L Troponin I < 0.050 (0.000-0.056) ng/mL Total Protein 7.4 (6.4-8.2) g/dL Albumin 3.8 (3.4-5.0) g/dL Globulin 3.6 H (2.0-3.5) g/dL Albumin/Globulin Ratio 1.1 L (1.3-2.8) Meds: Medications Discontinued Medications Generic Name Dose Route Start Last Admin Trade Name Freq PRN Reason Stop Dose Admin Albuterol/Ipratropium 3 ml 09/21/17 13:38 09/21/17 13:52 Duoneb 3.0-0.5 Mg/3 Ml NEB 09/21/17 13:39 3 ml ONETIME ONE Administration Methylprednisolone Sodium Succinate 125 mg 09/21/17 13:37 09/21/17 13:54 Solu-Medrol IVPUSH 09/21/17 13:38 125 mg ONETIME ONE Administration Departure - Departure Time of Disposition: 15:03 Disposition: Home, Self-Care 01 Condition: Good Clinical Impression: Acute bronchitis - Discharge Information Forms: ED Department Discharge Additional Instructions: The following information is given to patients seen in the emergency department who are being discharged to home. This information is to outline your options for follow-up care. We provide all patients seen in our emergency department with a follow-up referral. The need for follow-up, as well as the timing and circumstances, are variable depending upon the specifics of your emergency department visit. If you don't have a primary care physician on staff, we will provide you with a referral. We always advise you to contact your personal physician following an emergency department visit to inform them of the circumstance of the visit and for follow-up with them and/or the need for any referrals to a consulting specialist. The emergency department will also refer you to a specialist when appropriate. This referral assures that you have the opportunity for follow-up care with a specialist. All of these measure are taken in an effort to provide you with optimal care, which includes your follow-up. Under all circumstances we always encourage you to contact your private physician who remains a resource for coordinating your care. When calling for follow-up care, please make the office aware that this follow-up is from your recent emergency room visit. If for any reason you are refused follow-up, please contact the [facility] emergency department at and asked to speak to the emergency department charge nurse. - My Orders Last 24 Hours: My Active Orders 09/21/17 13:38 EKG Documentation Completion [RC] STAT RT Aerosol Therapy [RC] ASDIRECTED UA W/MICROSCOPIC [URIN] Stat - Assessment/Plan Last 24 Hours: My Active Orders 09/21/17 13:38 EKG Documentation Completion [RC] STAT RT Aerosol Therapy [RC] ASDIRECTED UA W/MICROSCOPIC [URIN] Stat
--- NOTE | 2017-09-21 14:25 | CR ---
EXAMINATION: Portable chest radiograph. HISTORY: Shortness of breath. Comparison: 05/20/2017. FINDINGS: The trachea is midline. The cardiomediastinal silhouette is within normal limits. No pulmonary infilt rates, effusions or pneumothorax. Osseous structures appear unremarkable. IMPRESSION: No acute cardiopulmonary process.
[2017-09-21 14:34] LABS: CHLORIDE,CL 100 mmol/L (98-107); SODIUM,NA 136 mmol/L (136-145)
[2017-09-21 15:39] VITALS: BP 125/70
== END 2017-09-21 15:20 | disposition home or self-care (01) ==
LOC: MW.ED 13:36
DX: J20.9 Acute bronchitis, unspecified (principal); F17.210 Nicotine dependence, cigarettes, uncomplicated; F32.9 Major depressive disorder, single episode, unspecified; Z88.8 Allergy status to other drugs, medicaments and biological substances; Z88.6 Allergy status to analgesic agent; Z88.5 Allergy status to narcotic agent; Z79.899 Other long term (current) drug therapy; Z79.84 Long term (current) use of oral hypoglycemic drugs; Z88.0 Allergy status to penicillin
CPT/HCPCS: 36415; 71045; 80053; 81001; 84484; 85025; 93005; 94640; 96374; 99285; J2930; 99283

== ENCOUNTER 2018-02-05 11:26 | Emergency (ER) | payer SELFPAY ==
--- NOTE | 2018-02-05 11:36 | EDM.PDOC ---
ED HPI GENERAL MEDICAL PROBLEM - General Stated Complaint: HEADACHES Time Seen by Provider: 02/05/18 11:27 Source of Information: Reports: Patient History Limitations: Reports: No Limitations - History of Present Illness INITIAL COMMENTS - FREE TEXT/NARRATIVE: HISTORY AND PHYSICAL: History of present illness: Patient is a 37-year-old female who presents to the emergency room with complaints of migraine headache. She states she has had a dull migraine since and has not found any relief with [id number] medications. She has light sensitivity, noise sensitivity and nausea. She does have a history of migraine headaches but states that these are infrequent. She denies any fever, chills, chest pain or shortness of breath. Denies any abdominal pain, vomiting, diarrhea or constipation. Review of systems: As per history of present illness and below otherwise all systems reviewed and negative. Past medical history: As per history of present illness and as reviewed below otherwise noncontributory. Surgical history: As per history of present illness and as reviewed below otherwise noncontributory. Social history: No reported history of drug or alcohol abuse. Family history: As per history of present illness and as reviewed below otherwise noncontributory. Physical exam: General: Well developed and well nourished 37 year old female. Alert and orientated. Nontoxic appearing and in no acute distress. HEENT: Atraumatic, normocephalic, pupils equal and reactive bilaterally, negative for conjunctival pallor or scleral icterus, mucous membranes moist, throat clear, neck supple, nontender, trachea midline. No drooling or trismus noted. No meningeal signs Lungs: Clear to auscultation, breath sounds equal bilaterally, chest nontender. Heart: S1S2, regular rate and rhythm without overt murmur Abdomen: Soft, nondistended, nontender. Negative for masses or hepatosplenomegaly. Negative for costovertebral tenderness. Pelvis: Stable nontender. Genitourinary: Deferred. Rectal: Deferred. Skin: Intact, warm, dry. No lesions or rashes noted. Extremities: Atraumatic, negative for cords or calf pain. Neurovascular unremarkable. Neuro: Awake, alert, oriented. Cranial nerves II through XII unremarkable. Cerebellum unremarkable. Motor and sensory unremarkable throughout. Exam nonfocal. Notes: Discussed performing a head CT, risks versus benefits were reviewed, at this time she declines. She does have a ride home we'll give her IV fluids and medications. Diagnostics: None Therapeutics: IV fluid, Toradol, Zofran, Ativan Prescription: None Impression: Migraine Plan: 1. Please take the remainder of the day to rest in a dark quiet room. Avoid stimulating activities (screen time, etc...) 2. Follow up with your primary care provider in the next 1-2 days. Return to the ED as needed and as discussed. Definitive disposition and diagnosis as appropriate pending reevaluation and review of above. Duration: Day(s): Location: Reports: Head headache Pain Score (Numeric/FACES): 8 - Related Data Allergies Allergy/AdvReac Type Severity Reaction Status Date / Time acetaminophen [From Tylenol] Allergy Hives Verified 02/05/18 11:49 Antihistamines - Alkylamine Allergy Anaphylactic Verified 02/05/18 11:49 Shock Opioids - Morphine Analogues Allergy Anaphylactic Verified 02/05/18 11:49 Shock Penicillins Allergy Rash Verified 02/05/18 11:49 phenytoin sodium Allergy Hives Verified 02/05/18 11:49 [From Dilantin] phenytoin sodium extended Allergy Hives Verified 02/05/18 11:49 [From Dilantin] vanilla whitfield Allergy Rash Uncoded 09/21/17 13:41 Home Meds: Home Meds Sertraline HCl [Zoloft] 100 mg PO DAILY 05/20/17 [History] Past Medical History - Past Health History Medical/Surgical History: Denies Medical/Surgical History Other HEENT History: wears glasses Cardiovascular History: Reports: None Respiratory History: Reports: None Gastrointestinal History: Reports: None Genitourinary History: Reports: None [employer] BU[employer]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 History: Reports: Polycystic Ovaries, Musculoskeletal History: Reports: Fracture Other Musculoskeletal History: bilateral clavicles, ribs Neurological History: Reports: Headaches, Chronic, Seizure Other Neuro History: hx of one seizure at age 19 from alcohol poisening Psychiatric History: Reports: Anxiety, Depression Endocrine/Metabolic History: Reports: Obesity/BMI 30+ Hematologic History: Reports: None Immunologic History: Reports: None Oncologic (Cancer) History: Reports: None Dermatologic History: Reports: None - Infectious Disease History Infectious Disease History: Reports: Chicken Pox - Past Surgical History Head Surgeries/Procedures: Reports: None HEENT Surgical History: Reports: Myringotomy w Tube(s), Tonsillectomy GI Surgical History: Reports: Appendectomy Musculoskeletal Surgical History: Reports: Shoulder Surgery Social & Family History - Family History Family Medical History: Noncontributory - Caffeine Use Caffeine Use: Reports: None ED ROS GENERAL - Review of Systems Review Of Systems: ROS reveals no pertinent complaints other than HPI. - Physical Exam Exam: See Below (See dictation) Course - Vital Signs Last Recorded V/S: Last Vital Signs Temp 97.8 F 02/05/18 11:49 Pulse 77 02/05/18 13:20 Resp 20 02/05/18 13:20 BP 112/78 02/05/18 13:20 Pulse Ox 98 02/05/18 13:20 - Orders/Labs/Meds Meds: Medications Discontinued Medications Generic Name Dose Route Start Last Admin Trade Name Neris PRN Reason Stop Dose Admin Sodium Chloride 1,000 mls @ 999 mls/hr 02/05/18 11:45 02/05/18 12:16 Normal Saline IV 02/05/18 12:45 999 mls/hr STAT ONE Administration Ketorolac Tromethamine 30 mg 02/05/18 11:45 02/05/18 12:16 Toradol IVPUSH 02/05/18 11:46 30 mg ONETIME ONE Administration Lorazepam 0.5 mg 02/05/18 12:11 02/05/18 13:03 Ativan IVPUSH 02/05/18 12:12 0.5 mg ONETIME ONE Administration Ondansetron HCl 4 mg 02/05/18 11:45 02/05/18 12:16 Zofran IVPUSH 02/05/18 11:46 4 mg ONETIME ONE Administration Departure - Departure Time of Disposition: 12:11 Disposition: Home, Self-Care 01 Clinical Impression: Migraine - Discharge Information Instructions: Migraine Headache, [id number] Referrals: PCP,None [Primary Care Provider] - Forms: ED Department Discharge Additional Instructions: The following information is given to patients seen in the emergency department who are being discharged to home. This information is to outline your options for follow-up care. We provide all patients seen in our emergency department with a follow-up referral. The need for follow-up, as well as the timing and circumstances, are variable depending upon the specifics of your emergency department visit. If you don't have a primary care physician on staff, we will provide you with a referral. We always advise you to contact your personal physician following an emergency department visit to inform them of the circumstance of the visit and for follow-up with them and/or the need for any referrals to a consulting specialist. The emergency department will also refer you to a specialist when appropriate. This referral assures that you have the opportunity for follow-up care with a specialist. All of these measure are taken in an effort to provide you with optimal care, which includes your follow-up. Under all circumstances we always encourage you to contact your private physician who remains a resource for coordinating your care. When calling for follow-up care, please make the office aware that this follow-up is from your recent emergency room visit. If for any reason you are refused follow-up, please contact the [facility] Emergency Department at and asked to speak to the emergency department charge nurse. [facility] [address] [place] [id number] 1. Please take the remainder of the day to rest in a dark quiet room. Avoid stimulating activities (screen time, etc...) 2. Follow up with your primary care provider in the next 1-2 days. Return to the ED as needed and as discussed.
[2018-02-05] MEDS ORDERED: Sodium Chloride 0.9% 1,000 ML IV ONE (11:45)
[2018-02-05] MEDS ORDERED: Ketorolac 30 MG/ML SDV IVPUSH ONE (11:45)
[2018-02-05] MEDS ORDERED: Ondansetron 4 MG/2 ML SDV IVPUSH ONE (11:45)
[2018-02-05] MEDS ORDERED: LORazepam 2 MG/ML SDV IVPUSH ONE (12:11)
[2018-02-05 14:13] VITALS: BP 112/78
== END 2018-02-05 13:26 | disposition home or self-care (01) ==
LOC: MW.ED 11:26
DX: G43.909 Migraine, unspecified, not intractable, without status migrainosus (principal); E66.9 Obesity, unspecified; Z88.0 Allergy status to penicillin; Z88.8 Allergy status to other drugs, medicaments and biological substances; Z88.5 Allergy status to narcotic agent
CPT/HCPCS: 96361; 96374; 96375; 99283; J1885; J2060; J2405; J7040

== ENCOUNTER 2019-02-04 07:05 | Emergency (ER) | payer SELFPAY ==
[2019-02-04 07:21] VITALS: BP 138/71; PULSE 91
--- NOTE | 2019-02-04 08:00 | EDM.PDOC ---
ED HPI GENERAL MEDICAL PROBLEM - General Chief Complaint: Upper Extremity Injury/Pain Stated Complaint: RING FINGER ON RIGHT HAND- POSSIBLY BROKEN Time Seen by Provider: 02/04/19 07:26 Source of Information: Reports: Patient History Limitations: Reports: No Limitations - History of Present Illness INITIAL COMMENTS - FREE TEXT/NARRATIVE: History of present illness: []Patient was walking her dog and the leash pulled her right ring finger and wrist. Swelling of her wrist but mild swelling of the distal tip of her ring finger. He denies any numbness or tingling or any other injuries. no Lacerations. Review of systems: As per history of present illness and below otherwise all systems reviewed and negative. Past medical history: As per history of present illness and as reviewed below otherwise noncontributory. Surgical history: As per history of present illness and as reviewed below otherwise noncontributory. Social history: No reported history of drug or alcohol abuse. Family history: As per history of present illness and as reviewed below otherwise noncontributory. Physical exam: General: Well developed, well nourished in NAD HEENT: Atraumatic, normocephalic, pupils reactive, negative for conjunctival pallor or scleral icterus, mucous membranes moist, throat clear, neck supple, nontender, trachea midline. Lungs: Clear to auscultation, breath sounds equal bilaterally, chest nontender. Heart: S1S2, regular, negative for clicks, rubs, or JVD. Abdomen: NABS, Soft, nondistended, nontender. Negative for masses or hepatosplenomegaly. Negative for costovertebral tenderness. Pelvis: Stable nontender. Genitourinary: Deferred. Rectal: Deferred. Extremities: Mild erythema of the right ring finger distal tip, no lacerations brisk capillary refill and sensations intact. Mild wrist tenderness on the ulnar aspect no swelling she has full range of motion and there is no crepitance. Pulses are intact negative for cords or calf pain. Neurovascular unremarkable. Neuro: Awake, alert, oriented. Cranial nerves II through XII unremarkable. Cerebellum unremarkable. Motor and sensory unremarkable throughout. Exam nonfocal. Skin:warm and dry Diagnostics: X-ray right hand no acute fractures Therapeutics: Declined pain meds, finger splint ED Course: Stable Impression: Finger contusion Prescriptions: None Plan: Take meds as directed, follow up with your primary care physician, return to ER if symptoms worsen or change. Definitive disposition and diagnosis as appropriate pending reevaluation and review of above. Right Finger-Ring Pain Score (Numeric/FACES): 6 - Related Data Allergies Allergy/AdvReac Type Severity Reaction Status Date / Time acetaminophen [From Tylenol] Allergy Hives Verified 02/04/19 07:13 Antihistamines - Alkylamine Allergy Anaphylactic Verified 02/04/19 07:13 Shock Opioids - Morphine Analogues Allergy Anaphylactic Verified 02/04/19 07:13 Shock Penicillins Allergy Rash Verified 02/04/19 07:13 phenytoin sodium Allergy Hives Verified 02/04/19 07:13 [From Dilantin] phenytoin sodium extended Allergy Hives Verified 02/04/19 07:13 [From Dilantin] vanilla whitfield Allergy Rash Uncoded 02/04/19 07:13 Home Meds: Home Meds Sertraline HCl [Zoloft] 100 mg PO DAILY 05/20/17 [History] Acetaminophen/Butalbital/Caff [Fioricet 325-50-40 MG] 1 each PO ASDIRECTED 02/04 [History] Topiramate [Topamax] 50 mg PO BID 02/04/19 [History] Past Medical History - Past Health History Medical/Surgical History: Denies Medical/Surgical History HEENT History: Reports: Other (See Below) Other HEENT History: wears glasses Cardiovascular History: Reports: None Respiratory History: Reports: None Gastrointestinal History: Reports: None Genitourinary History: Reports: None 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: Polycystic Ovaries, Musculoskeletal History: Reports: Fracture Other Musculoskeletal History: bilateral clavicles, ribs Neurological History: Reports: Headaches, Chronic, Seizure Other Neuro History: hx of one seizure at age 19 from alcohol poisening Psychiatric History: Reports: Anxiety, Depression Endocrine/Metabolic History: Reports: Obesity/BMI 30+ Hematologic History: Reports: None Immunologic History: Reports: None Oncologic (Cancer) History: Reports: None Dermatologic History: Reports: None - Infectious Disease History Infectious Disease History: Reports: Chicken Pox - Past Surgical History Head Surgeries/Procedures: Reports: None HEENT Surgical History: Reports: Myringotomy w Tube(s), Tonsillectomy GI Surgical History: Reports: Appendectomy Musculoskeletal Surgical History: Reports: Shoulder Surgery Social & Family History - Family History Family Medical History: Noncontributory - Tobacco Use Smoking Status *Q: Current Every Day Smoker Years of Tobacco use: 15 Packs/Tins Daily: 0.5 - Caffeine Use Caffeine Use: Reports: None - Recreational Drug Use Recreational Drug Use: No Review of Systems - Review of Systems Review Of Systems: See Below ED EXAM, GENERAL - Physical Exam Exam: See Below Course - Vital Signs Last Recorded V/S: Last Vital Signs Temp 96.1 F 02/04/19 07:12 Pulse 91 02/04/19 07:12 Resp 18 02/04/19 07:12 BP 138/71 02/04/19 07:12 Pulse Ox 97 02/04/19 07:12 - Orders/Labs/Meds Orders: Active Orders 24 hr Category Date Time Status Splinting [RC] ASDIRECTED Care 02/04/19 08:23 Active Departure - Departure Time of Disposition: 08:22 Disposition: Home, Self-Care 01 Condition: Good Clinical Impression: Finger contusion Qualifiers: Encounter type: initial encounter Finger: ring finger Damage to nail status: without damage Laterality: right Qualified Code(s): S60.041A - Contusion of right ring finger without damage to nail, initial encounter Clinical Impression: (Ruled Out): Hand contusion - Discharge Information *PRESCRIPTION DRUG MONITORING PROGRAM REVIEWED*: No *COPY OF PRESCRIPTION DRUG MONITORING REPORT IN PATIENT ZABRINA: No Instructions: Hand Contusion, [id number] Referrals: Esme Reaves NP [Primary Care Provider] - Forms: ED Department Discharge Additional Instructions: The following information is given to patients seen in the emergency department who are being discharged to home. This information is to outline your options for follow-up care. We provide all patients seen in our emergency department with a follow-up referral. The need for follow-up, as well as the timing and circumstances, are variable depending upon the specifics of your emergency department visit. If you don't have a primary care physician on staff, we will provide you with a referral. We always advise you to contact your personal physician following an emergency department visit to inform them of the circumstance of the visit and for follow-up with them and/or the need for any referrals to a consulting specialist. The emergency department will also refer you to a specialist when appropriate. This referral assures that you have the opportunity for follow-up care with a specialist. All of these measure are taken in an effort to provide you with optimal care, which includes your follow-up. Under all circumstances we always encourage you to contact your private physician who remains a resource for coordinating your care. When calling for follow-up care, please make the office aware that this follow-up is from your recent emergency room visit. If for any reason you are refused follow-up, please contact the [facility] Emergency Department at and asked to speak to the emergency department charge nurse. Take meds as directed, follow up with your primary care physician, return to ER if symptoms worsen or change. [facility] Primary Care [address] [place] [id number] - My Orders Last 24 Hours: My Active Orders 02/04/19 08:23 Splinting [RC] ASDIRECTED - Assessment/Plan Last 24 Hours: My Active Orders 02/04/19 08:23 Splinting [RC] ASDIRECTED
--- NOTE | 2019-02-04 08:17 | CR ---
INDICATION: Hand injury. COMPARISON: none TECHNIQUE: Three-view right hand FINDINGS: The bones are anatomically aligned. There is no evidence of fracture, erosion or intrinsic bone lesion. The soft tissues appear normal. IMPRESSION: Negative right hand. Dictated by Shin Leonard MD @ Feb 04 2019 8:14AM Signed by Dr. Shin Leonard @ Feb 04 2019 8:15AM
== END 2019-02-04 08:30 | disposition home or self-care (01) ==
LOC: MW.ED 07:05
DX: S60.041A Contusion of right ring finger without damage to nail, initial encounter (principal); F41.9 Anxiety disorder, unspecified; F32.9 Major depressive disorder, single episode, unspecified; F17.210 Nicotine dependence, cigarettes, uncomplicated; Z88.6 Allergy status to analgesic agent; Z88.0 Allergy status to penicillin; Z88.8 Allergy status to other drugs, medicaments and biological substances; Z79.899 Other long term (current) drug therapy; W23.1XXA Caught, crushed, jammed, or pinched between stationary objects, initial encounter
CPT/HCPCS: 73130-26-RT; 73130-RT; 99282; 99283-25

== ENCOUNTER 2019-06-30 15:13 | Emergency (ER) | payer SELFPAY ==
[2019-06-30] MEDS ORDERED: Ibuprofen 800 MG Tab PO ONE (16:18)
[2019-06-30] MEDS ORDERED: Albuterol/Ipratropium 3.0-0.5 MG/3 ML Neb Soln NEB ONE ×2 (16:18→18:06)
[2019-06-30] MEDS ORDERED: methylPREDNISolone Sodium Succinate 125 MG/2 ML SDV IM ONE (16:18)
[2019-06-30] MEDS ORDERED: Sodium Chloride 0.9% 1,000 ML IV ONE (16:27)
--- NOTE | 2019-06-30 16:31 | EDM.PDOC ---
ED HPI GENERAL MEDICAL PROBLEM - General Chief Complaint: General Stated Complaint: FLU Time Seen by Provider: 06/30/19 15:16 Source of Information: Reports: Patient History Limitations: Reports: No Limitations - History of Present Illness INITIAL COMMENTS - FREE TEXT/NARRATIVE: HISTORY AND PHYSICAL: History of present illness: Patient is a 39-year-old female who presents to the ED today with concern of cough, generalized body aches, and fever over the past 2 days. Patient states she last took Tylenol 2 hours prior to arrival to the ED. Patient states that her boyfriend was diagnosed with influenza 2 days ago. Patient states that she does smoke a pack of cigarettes a day but has not smoked over the past 2 days due to the cough. Patient denies any health history or any other symptoms or concerns. Patient denies chest pain, shortness of breath. Denies headache, neck stiff ness , change in vision, syncope, or near syncope. Denies nausea, vomiting, abdominal pain, diarrhea, constipation, or dysuria. Has not noted any blood in urine or stool. Patient has been eating and drinking appropriately. Review of systems: As per history of present illness and below otherwise all systems reviewed and negative. Past medical history: As per history of present illness and as reviewed below otherwise noncontributory. Surgical history: As per history of present illness and as reviewed below otherwise noncontributory. Social history: See social history for further information Family history: As per history of present illness and as reviewed below otherwise noncontributory. Physical exam: General: Patient is alert, oriented, and in no acute distress. Patient sitting comfortably on exam table but tired appearing. HEENT: Atraumatic, normocephalic, pupils equal and reactive bilaterally, negative for conjunctival pallor or scleral icterus, mucous membranes moist, TMs normal bilaterally, throat clear, neck supple, nontender, trachea midline. No drooling or trismus noted. No meningeal signs. No hot potato voice noted. Lungs: Mild wheezing to auscultation of bilateral lung bases, breath sounds equal bilaterally, chest nontender. Dry cough on exam. Heart: S1S2, regular rate and rhythm without overt murmur Abdomen: Soft, nondistended, nontender. Negative for masses or hepatosplenomegaly. Negative for costovertebral tenderness. Pelvis: Stable nontender. Genitourinary: Deferred. Rectal: Deferred. Skin: Intact, warm, dry. No lesions or rashes noted. Extremities: Atraumatic, negative for cords or calf pain. Neurovascular unremarkable. Neuro: Awake, alert, oriented. Cranial nerves II through XII unremarkable. Cerebellum unremarkable. Motor and sensory unremarkable throughout. Exam nonfocal. Notes: 94-95% on RA upon arrival. Tachycardia and fever resolved with therapeutics today. Ambulatory saturation on RA 95% Voices understanding and is agreeable to plan of care. Denies any further questions or concerns at this time. Diagnostics: Influenza, Strep, CBC, CMP, UA, urine culture, serum hcg, CXR Therapeutics: Duoneb, solumedrol, Ibuprofen, NS Prescription: Medrol dose pack, Proair inhaler, Duonebs, Macrobid Impression: Flu like illness Urinary tract infection, early Plan: 1. Take medication as prescribed. You can alternate ibuprofen and Tylenol as directed for pain and discomfort. 2. Follow-up with your primary care provider as discussed. Return to the ED as needed and as discussed. Definitive disposition and diagnosis as appropriate pending reevaluation and review of above. Body Pain Score (Numeric/FACES): 7 - Related Data Allergies Allergy/AdvReac Type Severity Reaction Status Date / Time acetaminophen [From Tylenol] Allergy Hives Verified 06/30/19 15:48 Antihistamines - Alkylamine Allergy Anaphylactic Verified 06/30/19 15:48 Shock Opioids - Morphine Analogues Allergy Anaphylactic Verified 06/30/19 15:48 Shock Penicillins Allergy Rash Verified 06/30/19 15:48 phenytoin sodium Allergy Hives Verified 06/30/19 15:48 [From Dilantin] phenytoin sodium extended Allergy Hives Verified 06/30/19 15:48 [From Dilantin] vanilla whitfield Allergy Rash Uncoded 06/30/19 15:48 Home Meds: Home Meds Sertraline HCl [Zoloft] 100 mg PO DAILY 05/20/17 [History] Acetaminophen/Butalbital/Caff [Fioricet 325-50-40 MG] 1 each PO ASDIRECTED 02/04 [History] Topiramate [Topamax] 50 mg PO BID 02/04/19 [History] Albuterol Sulfate [Proair Hfa] 8.5 gm IH Q8HR PRN #1 hfa.[email or web address] 06/30/19 [Rx] Albuterol/Ipratropium [DuoNeb 3.0-0.5 MG/3 ML] 3 ml .XX TID PRN #1 box 06/30/19 [Rx] Nitrofurantoin Monohyd/M-Cryst [Macrobid 100 mg Capsule] 100 mg PO BID 5 Days # 10 capsule 06/30/19 [Rx] methylPREDNISolone [Medrol] 4 mg PO ASDIRECTED #1 dosepk 06/30/19 [Rx] Past Medical History - Past Health History Medical/Surgical History: Denies Medical/Surgical History HEENT History: Reports: Other (See Below) Other HEENT History: wears glasses Cardiovascular History: Reports: None Respiratory History: Reports: None Gastrointestinal History: Reports: None Genitourinary History: Reports: None 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, Musculoskeletal History: Reports: Fracture Other Musculoskeletal History: bilateral clavicles, ribs Neurological History: Reports: Headaches, Chronic, Seizure Other Neuro History: hx of one seizure at age 19 from alcohol poisening Psychiatric History: Reports: Anxiety, Depression Endocrine/Metabolic History: Reports: Obesity/BMI 30+ Hematologic History: Reports: None Immunologic History: Reports: None Oncologic (Cancer) History: Reports: None Dermatologic History: Reports: None - Infectious Disease History Infectious Disease History: Reports: Chicken Pox, Shingles - Past Surgical History Head Surgeries/Procedures: Reports: None HEENT Surgical History: Reports: Myringotomy w Tube(s), Tonsillectomy GI Surgical History: Reports: Appendectomy Musculoskeletal Surgical History: Reports: Shoulder Surgery Social & Family History - Family History Family Medical History: Noncontributory - Tobacco Use Smoking Status *Q: Current Every Day Smoker Years of Tobacco use: 15 Packs/Tins Daily: 1 - Caffeine Use Caffeine Use: Reports: None - Recreational Drug Use Recreational Drug Use: No ED ROS GENERAL - Review of Systems Review Of Systems: Comprehensive ROS is negative, except as noted in HPI. ED EXAM, GENERAL - Physical Exam Exam: See Below (see dictation) Course - Vital Signs Last Recorded V/S: Last Vital Signs Temp 100.6 F 06/30/19 17:57 Pulse 108 H 06/30/19 15:48 Resp 16 06/30/19 15:48 BP 156/68 H 06/30/19 15:48 Pulse Ox 94 L 06/30/19 15:48 - Orders/Labs/Meds Orders: Active Orders 24 hr Category Date Time Status RT Aerosol Therapy [RC] ASDIRECTED Care 06/30/19 16:18 Active RT Aerosol Therapy [RC] ASDIRECTED Care 06/30/19 18:06 Active CULTURE STREP A CONFIRMATION [] Stat Lab 06/30/19 16:00 Results CULTURE URINE [] Stat Lab 06/30/19 16:52 Received STREP SCRN A RAPID W CULT CONF [] Stat Lab 06/30/19 16:00 Results Labs: Laboratory Tests 06/30/19 06/30/19 06/30/19 Range/Units 16:50 16:50 16:50 WBC 6.77 (4.0-11.0) K/uL RBC 4.89 (4.30-5.90) M/uL Hgb 14.3 (12.0-16.0) g/dL Hct 42.5 (36.0-46.0) % MCV 86.9 (80.0-98.0) fL MCH 29.2 (27.0-32.0) pg MCHC 33.6 (31.0-37.0) g/dL RDW Std Deviation 42.1 (28.0-62.0) fl RDW Coeff of John 13 (11.0-15.0) % Plt Count 238 (150-400) K/uL MPV 10.70 (7.40-12.00) fL Neut % (Auto) 75.0 (48.0-80.0) % Lymph % (Auto) 13.4 L (16.0-40.0) % [place] % (Auto) 10.9 (0.0-15.0) % Eos % (Auto) 0.3 (0.0-7.0) % Baso % (Auto) 0.4 (0.0-1.5) % Neut # (Auto) 5.1 (1.4-5.7) K/uL Lymph # (Auto) 0.9 (0.6-2.4) K/uL [place] # (Auto) 0.7 (0.0-0.8) K/uL Eos # (Auto) 0.0 (0.0-0.7) K/uL Baso # (Auto) 0.0 (0.0-0.1) K/uL Nucleated RBC % 0.0 /100WBC Nucleated RBCs # 0 K/uL Sodium 135 L (136-145) mmol/L Potassium 3.9 (3.5-5.1) mmol/L Chloride 99 (98-107) mmol/L Carbon Dioxide 26.7 (21.0-32.0) mmol/L BUN 10 (7.0-18.0) mg/dL Creatinine 0.8 (0.6-1.0) mg/dL Est Cr Clr Drug Dosing 86.64 mL/min Estimated GFR (MDRD) > 60.0 ml/min Glucose 178 H (74-106) mg/dL Calcium 8.8 (8.5-10.1) mg/dL Total Bilirubin 0.3 (0.2-1.0) mg/dL AST 38 H (15-37) IU/L ALT 58 (14-63) IU/L Alkaline Phosphatase 96 (46-116) U/L Total Protein 7.5 (6.4-8.2) g/dL Albumin 3.9 (3.4-5.0) g/dL Globulin 3.6 (2.6-4.0) g/dL Albumin/Globulin Ratio 1.1 (0.9-1.6) HCG, Qual NEGATIVE (NEG) Urine Color Urine Appearance Urine pH (5.0-8.0) Ur Specific [place] (1.001-1.035) Urine Protein (NEGATIVE) mg/dL Urine Glucose (UA) (NEGATIVE) mg/dL Urine Ketones (NEGATIVE) mg/dL Urine Occult Blood (NEGATIVE) Urine Nitrite (NEGATIVE) Urine Bilirubin (NEGATIVE) Urine Urobilinogen (<2.0) EU/dL Ur Leukocyte Esterase (NEGATIVE) Urine RBC (0-2/HPF) Urine WBC (0-5/HPF) Ur Epithelial Cells (NONE-FEW) Urine Bacteria (NEGATIVE) Urine Mucus (NONE-MOD) 06/30/19 Range/Units 16:52 WBC (4.0-11.0) K/uL RBC (4.30-5.90) M/uL Hgb (12.0-16.0) g/dL Hct (36.0-46.0) % MCV (80.0-98.0) fL MCH (27.0-32.0) pg MCHC (31.0-37.0) g/dL RDW Std Deviation (28.0-62.0) fl RDW Coeff of John (11.0-15.0) % Plt Count (150-400) K/uL MPV (7.40-12.00) fL Neut % (Auto) (48.0-80.0) % Lymph % (Auto) (16.0-40.0) % [place] % (Auto) (0.0-15.0) % Eos % (Auto) (0.0-7.0) % Baso % (Auto) (0.0-1.5) % Neut # (Auto) (1.4-5.7) K/uL Lymph # (Auto) (0.6-2.4) K/uL [place] # (Auto) (0.0-0.8) K/uL Eos # (Auto) (0.0-0.7) K/uL Baso # (Auto) (0.0-0.1) K/uL Nucleated RBC % /100WBC Nucleated RBCs # K/uL Sodium (136-145) mmol/L Potassium (3.5-5.1) mmol/L Chloride (98-107) mmol/L Carbon Dioxide (21.0-32.0) mmol/L BUN (7.0-18.0) mg/dL Creatinine (0.6-1.0) mg/dL Est Cr Clr Drug Dosing mL/min Estimated GFR (MDRD) ml/min Glucose (74-106) mg/dL Calcium (8.5-10.1) mg/dL Total Bilirubin (0.2-1.0) mg/dL AST (15-37) IU/L ALT (14-63) IU/L Alkaline Phosphatase (46-116) U/L Total Protein (6.4-8.2) g/dL Albumin (3.4-5.0) g/dL Globulin (2.6-4.0) g/dL Albumin/Globulin Ratio (0.9-1.6) HCG, Qual (NEG) Urine Color YELLOW Urine Appearance SLT CLOUDY Urine pH 6.0 (5.0-8.0) Ur Specific [place] >= 1.030 (1.001-1.035) Urine Protein NEGATIVE (NEGATIVE) mg/dL Urine Glucose (UA) NEGATIVE (NEGATIVE) mg/dL Urine Ketones NEGATIVE (NEGATIVE) mg/dL Urine Occult Blood NEGATIVE (NEGATIVE) Urine Nitrite NEGATIVE (NEGATIVE) Urine Bilirubin NEGATIVE (NEGATIVE) Urine Urobilinogen 0.2 (<2.0) EU/dL Ur Leukocyte Esterase TRACE H (NEGATIVE) Urine RBC 0-2 (0-2/HPF) Urine WBC 3-6 (0-5/HPF) Ur Epithelial Cells MANY (NONE-FEW) Urine Bacteria FEW (NEGATIVE) Urine Mucus LIGHT (NONE-MOD) Meds: Medications Discontinued Medications Generic Name Dose Route Start Last Admin Trade Name Freq PRN Reason Stop Dose Admin Albuterol/Ipratropium 3 ml 06/30/19 16:18 06/30/19 16:44 Duoneb 3.0-0.5 Mg/3 Ml NEB 06/30/19 16:19 3 ml ONETIME ONE Administration Albuterol/Ipratropium 3 ml 06/30/19 18:06 06/30/19 18:16 Duoneb 3.0-0.5 Mg/3 Ml NEB 06/30/19 18:07 3 ml ONETIME ONE Administration Sodium Chloride 1,000 mls @ 999 mls/hr 06/30/19 16:27 06/30/19 16:58 Normal Saline IV 06/30/19 17:27 999 mls/hr BOLUS ONE Administration Ibuprofen 800 mg 06/30/19 16:18 06/30/19 16:57 Motrin PO 06/30/19 16:19 800 mg ONETIME ONE Administration Methylprednisolone Sodium Succinate 125 mg 06/30/19 16:18 06/30/19 16:36 Solu-Medrol IM 06/30/19 16:19 Not Given ONETIME ONE Methylprednisolone Sodium Succinate 125 mg 06/30/19 16:58 06/30/19 16:58 Solu-Medrol IVPUSH 06/30/19 16:59 125 mg ONETIME ONE Administration Departure - Departure Time of Disposition: 18:43 Disposition: Home, Self-Care 01 Clinical Impression: Flu-like symptoms Urinary tract infection Qualifiers: Urinary tract infection type: acute cystitis Hematuria presence: without hematuria Qualified Code(s): N30.00 - Acute cystitis without hematuria - Discharge Information Prescriptions: Albuterol Sulfate [Proair Hfa] 8.5 gm IH Q8HR PRN #1 hfa.aer.ad PRN Reason: Cough Albuterol/Ipratropium [DuoNeb 3.0-0.5 MG/3 ML] 3 ml .XX TID PRN #1 box PRN Reason: Cough methylPREDNISolone [Medrol] 4 mg PO ASDIRECTED #1 dosepk Nitrofurantoin Monohyd/M-Cryst [Macrobid 100 mg Capsule] 100 mg PO BID 5 Days # 10 capsule Referrals: Esme Reaves, PILE DRIVER [Primary Care Provider] - Forms: ED Department Discharge Additional Instructions: The following information is given to patients seen in the emergency department who are being discharged to home. This information is to outline your options for follow-up care. We provide all patients seen in our emergency department with a follow-up referral. The need for follow-up, as well as the timing and circumstances, are variable depending upon the specifics of your emergency department visit. If you don't have a primary care physician on staff, we will provide you with a referral. We always advise you to contact your personal physician following an emergency department visit to inform them of the circumstance of the visit and for follow-up with them and/or the need for any referrals to a consulting specialist. The emergency department will also refer you to a specialist when appropriate. This referral assures that you have the opportunity for follow-up care with a specialist. All of these measure are taken in an effort to provide you with optimal care, which includes your follow-up. Under all circumstances we always encourage you to contact your private physician who remains a resource for coordinating your care. When calling for follow-up care, please make the office aware that this follow-up is from your recent emergency room visit. If for any reason you are refused follow-up, please contact the Emergency Department at and asked to speak to the emergency department charge nurse. Primary Care [address] [place] [id number] [facility] [address] [place] [id number] 1. Take medication as prescribed. You can alternate ibuprofen and Tylenol as directed for pain and discomfort. 2. Follow-up with your primary care provider as discussed. Return to the ED as needed and as discussed. Sepsis Event Note - Evaluation Sepsis Screening Result: No Definite Risk - Focused Exam Vital Signs: Vital Signs Temp Temp Pulse Resp BP Pulse Ox 06/30/19 17:57 100.6 F 06/30/19 15:48 103 F H 108 H 16 156/68 H 94 L Date Exam was Performed: 06/30/19 Time Exam was Performed: 18:42 - My Orders Last 24 Hours: My Active Orders 06/30/19 16:00 CULTURE STREP A CONFIRMATION [RM] Stat STREP SCRN A RAPID W CULT CONF [RM] Stat 06/30/19 16:18 RT Aerosol Therapy [RC] ASDIRECTED 06/30/19 16:52 CULTURE URINE [RM] Stat 06/30/19 18:06 RT Aerosol Therapy [RC] ASDIRECTED - Assessment/Plan Last 24 Hours: My Active Orders 06/30/19 16:00 CULTURE STREP A CONFIRMATION [RM] Stat STREP SCRN A RAPID W CULT CONF [RM] Stat 06/30/19 16:18 RT Aerosol Therapy [RC] ASDIRECTED 06/30/19 16:52 CULTURE URINE [RM] Stat 06/30/19 18:06 RT Aerosol Therapy [RC] ASDIRECTED
[2019-06-30] MEDS ORDERED: methylPREDNISolone Sodium Succinate 125 MG/2 ML SDV IVPUSH ONE (16:58)
[2019-06-30 17:27] LABS: BLOOD UREA NITROGEN,BUN 10 mg/dL (7.0-18.0); CARBON DIOXIDE,CO2 26.7 mmol/L (21.0-32.0); CHLORIDE,CL 99 mmol/L (98-107); GLUCOSE RANDOM 178 mg/dL (74-106); POTASSIUM,K 3.9 mmol/L (3.5-5.1); SODIUM,NA 135 mmol/L (136-145)
--- NOTE | 2019-06-30 18:01 | CR ---
Indication: Fever. Cough. Technique: PA and lateral views the chest. Comparison: May 13, 2018 Findings: The heart is normal in size. The lungs are clear. No infiltrate, pleural effusion, or pneumothorax is identified. Impression: Stable chest x-ray Dictated by Caprice Camacho MD @ Jun 30 2019 5:58PM Signed by Dr. Caprice Camacho @ Jun 30 2019 5:59PM
[2019-06-30 23:44] VITALS: BP 117/59; PULSE 99
== END 2019-06-30 19:10 | disposition home or self-care (01) ==
LOC: MW.ED 15:13
DX: N30.00 Acute cystitis without hematuria (principal); R05 Cough; F32.9 Major depressive disorder, single episode, unspecified; F41.9 Anxiety disorder, unspecified; F17.210 Nicotine dependence, cigarettes, uncomplicated; Z88.0 Allergy status to penicillin; Z88.5 Allergy status to narcotic agent; Z88.8 Allergy status to other drugs, medicaments and biological substances; Z91.018 Allergy to other foods; Z79.899 Other long term (current) drug therapy
CPT/HCPCS: 36415; 71046; 80053; 81001; 84703; 85025; 87081; 87086; 87804; 87880; 94640; 96361; 96374; 99283; A9270; J2930; J7030; J7620-GY

== ENCOUNTER 2020-02-23 12:29 | Emergency (ER) | payer BC ==
[2020-02-23] MEDS ORDERED: Sodium Chloride 0.9% 1,000 ML IV ONE (13:14)
--- NOTE | 2020-02-23 13:18 | EDM.PDOC ---
ED HPI GENERAL MEDICAL PROBLEM - General Chief Complaint: General Stated Complaint: HEAD INJURY Time Seen by Provider: 02/23/20 12:33 Source of Information: Reports: Patient History Limitations: Reports: No Limitations - History of Present Illness INITIAL COMMENTS - FREE TEXT/NARRATIVE: HISTORY AND PHYSICAL: History of present illness: Patient is a 39-year-old female who presents to the ED today with concern of dizziness and vomiting that started this morning. Patient states yesterday she was on the slip and slide when she slipped fell back and hit her head. Patient states she has unknown loss of consciousness and states that she felt like "her bowel was run". Patient states that she had a low-grade headache yesterday but other than this felt fine following the fall. Patient states that she woke up today and she has been feeling dizzy and has now had 4-5 episodes of vomiting and feels "off ". Patient states that she does have a history of type 2 diabetes but has not checked her blood sugars today and is on insulin. Patient states that she also has a history of PCOS. Patient denies fever, chills, chest pain, shortness of breath, or cough. Denies neck stiff ness, change in vision, syncope, or near syncope. Denies nausea, vomiting, abdominal pain, diarrhea, constipation, or dysuria. Has not noted any blood in urine or stool. Patient has been eating and drinking appropriately. Review of systems: As per history of present illness and below otherwise all systems reviewed and negative. Past medical history: As per history of present illness and as reviewed below otherwise noncontributory. Surgical history: As per history of present illness and as reviewed below otherwise noncontributory. Social history: See social history for further information Family history: As per history of present illness and as reviewed below otherwise noncontributory. Physical exam: General: Patient is alert, oriented, and in no acute distress. Patient sitting comfortably on exam table. HEENT: Atraumatic, normocephalic, pupils equal and reactive bilaterally, negative for conjunctival pallor or scleral icterus, mucous membranes moist, TMs normal bilaterally, throat clear, neck supple, nontender, trachea midline. No drooling or trismus noted. No meningeal signs. No hot potato voice noted. Lungs: Clear to auscultation, breath sounds equal bilaterally, chest nontender. Heart: S1S2, regular rate and rhythm without overt murmur Abdomen: Soft, nondistended, nontender. Negative for masses or hepatosplenomegaly. Negative for costovertebral tenderness. Pelvis: Stable nontender. Genitourinary: Deferred. Rectal: Deferred. Skin: Intact, warm, dry. No lesions or rashes noted. Extremities: Atraumatic, negative for cords or calf pain. Neurovascular unremarkable. Neuro: Awake, alert, oriented. Cranial nerves II through XII unremarkable. Cerebellum unremarkable. Motor and sensory unremarkable throughout. Exam nonfocal. Notes: Patient expresses improvement of symptoms today in the ED with therapeutics. Patient has not had any vomiting today in the ED. Concussion care thoroughly reviewed with patient. Signs and symptoms that would prompt return to the ED thoroughly discussed with patient. Voices understanding and is agreeable to plan of care. Denies any further questions or concerns at this time. Diagnostics: CBC, CMP, UA, Serum hcg, EKG, Head CT, CXR Therapeutics: NS, Zofran, Toradol Prescription: None Impression: Concussion syndrome Head injury Plan: 1. You can alternate ibuprofen and Tylenol as directed for pain and discomfort. Follow-up with a primary care provider as discussed. Return to the ED as needed and as discussed. Definitive disposition and diagnosis as appropriate pending reevaluation and review of above. headahce, neck, shoulders Pain Score (Numeric/FACES): 5 - Related Data Allergies Allergy/AdvReac Type Severity Reaction Status Date / Time acetaminophen [From Tylenol] Allergy Hives Verified 02/23/20 12:58 Antihistamines - Alkylamine Allergy Anaphylactic Verified 02/23/20 12:58 Shock Opioids - Morphine Analogues Allergy Anaphylactic Verified 02/23/20 12:58 Shock Penicillins Allergy Rash Verified 02/23/20 12:58 phenytoin sodium Allergy Hives Verified 02/23/20 12:58 [From Dilantin] phenytoin sodium extended Allergy Hives Verified 02/23/20 12:58 [From Dilantin] vanilla whitfield Allergy Rash Uncoded 02/23/20 12:58 Home Meds: Home Meds Sertraline HCl [Zoloft] 100 mg PO DAILY 05/20/17 [History] Topiramate [Topamax] 50 mg PO BID 02/04/19 [History] Albuterol Sulfate [Proair Hfa] 8.5 gm IH Q8HR PRN #1 [email or web address] 06/30/19 [Rx] Albuterol/Ipratropium [DuoNeb 3.0-0.5 MG/3 ML] 3 ml .XX TID PRN #1 box 06/30/19 [Rx] Insulin Detemir [Levemir] 14 units SQ DAILY 02/23/20 [History] metFORMIN [Glucophage XR] 500 mg PO BID 02/23/20 [History] Past Medical History - Past Health History Medical/Surgical History: Denies Medical/Surgical History HEENT History: Reports: Other (See Below) Other HEENT History: wears glasses Cardiovascular History: Reports: None Respiratory History: Reports: None Gastrointestinal History: Reports: None Genitourinary History: Reports: None [employer]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[employer] History: Reports: Polycystic Ovaries, Musculoskeletal History: Reports: Fracture Other Musculoskeletal History: bilateral clavicles, ribs Neurological History: Reports: Headaches, Chronic, Seizure Other Neuro History: hx of one seizure at age 19 from alcohol poisening Psychiatric History: Reports: Anxiety, Depression Endocrine/Metabolic History: Reports: Diabetes, Type II, Obesity/BMI 30+ Hematologic History: Reports: None Immunologic History: Reports: None Oncologic (Cancer) History: Reports: None Dermatologic History: Reports: None - Infectious Disease History Infectious Disease History: Reports: Chicken Pox, MRSA - Past Surgical History Head Surgeries/Procedures: Reports: None HEENT Surgical History: Reports: Myringotomy w Tube(s), Tonsillectomy GI Surgical History: Reports: Appendectomy Musculoskeletal Surgical History: Reports: Shoulder Surgery Social & Family History - Family History Family Medical History: Noncontributory - Tobacco Use Smoking Status *Q: Current Every Day Smoker Years of Tobacco use: 16 Packs/Tins Daily: 1 - Caffeine Use Caffeine Use: Reports: Tea - Recreational Drug Use Recreational Drug Use: No ED ROS GENERAL - Review of Systems Review Of Systems: Comprehensive ROS is negative, except as noted in HPI. ED EXAM, GENERAL - Physical Exam Exam: See Below (see dictation) Course - Vital Signs Last Recorded V/S: Last Vital Signs Temp 97.5 F 02/23/20 13:01 Pulse 67 02/23/20 15:00 Resp 17 02/23/20 15:00 BP 112/64 02/23/20 15:00 Pulse Ox 97 02/23/20 15:00 - Orders/Labs/Meds Orders: Active Orders 24 hr Category Date Time Status EKG Documentation Completion [RC] STAT Care 02/23/20 13:13 Active CULTURE URINE [RM] Stat Lab 02/23/20 13:32 Received Labs: Laboratory Tests 02/23/20 02/23/20 02/23/20 Range/Units 13:32 13:32 13:32 WBC 9.82 (4.0-11.0) K/uL RBC 4.78 (4.30-5.90) M/uL Hgb 13.5 (12.0-16.0) g/dL Hct 41.5 (36.0-46.0) % MCV 86.8 (80.0-98.0) fL MCH 28.2 (27.0-32.0) pg MCHC 32.5 (31.0-37.0) g/dL RDW Std Deviation 42.4 (28.0-62.0) fl RDW Coeff of John 13 (11.0-15.0) % Plt Count 315 (150-400) K/uL MPV 10.50 (7.40-12.00) fL Neut % (Auto) 65.5 (48.0-80.0) % Lymph % (Auto) 24.5 (16.0-40.0) % [place] % (Auto) 6.1 (0.0-15.0) % Eos % (Auto) 3.6 (0.0-7.0) % Baso % (Auto) 0.3 (0.0-1.5) % Neut # (Auto) 6.4 H (1.4-5.7) K/uL Lymph # (Auto) 2.4 (0.6-2.4) K/uL [place] # (Auto) 0.6 (0.0-0.8) K/uL Eos # (Auto) 0.4 (0.0-0.7) K/uL Baso # (Auto) 0.0 (0.0-0.1) K/uL Nucleated RBC % 0.0 /100WBC Nucleated RBCs # 0 K/uL Sodium 140 (136-145) mmol/L Potassium 4.0 (3.5-5.1) mmol/L Chloride 106 (98-107) mmol/L Carbon Dioxide 23.6 (21.0-32.0) mmol/L BUN 14 (7.0-18.0) mg/dL Creatinine 1.0 (0.6-1.0) mg/dL Est Cr Clr Drug Dosing 69.31 mL/min Estimated GFR (MDRD) > 60.0 ml/min Glucose 124 H (74-106) mg/dL Calcium 8.8 (8.5-10.1) mg/dL Total Bilirubin 0.3 (0.2-1.0) mg/dL AST 11 L (15-37) IU/L ALT 14 (14-63) IU/L Alkaline Phosphatase 70 (46-116) U/L Total Protein 6.7 (6.4-8.2) g/dL Albumin 3.8 (3.4-5.0) g/dL Globulin 2.9 (2.6-4.0) g/dL Albumin/Globulin Ratio 1.3 (0.9-1.6) HCG, Qual (NEG) Urine Color YELLOW Urine Appearance CLEAR Urine pH 6.0 (5.0-8.0) Ur Specific [place] 1.025 (1.001-1.035) Urine Protein NEGATIVE (NEGATIVE) mg/dL Urine Glucose (UA) NEGATIVE (NEGATIVE) mg/dL Urine Ketones NEGATIVE (NEGATIVE) mg/dL Urine Occult Blood NEGATIVE (NEGATIVE) Urine Nitrite NEGATIVE (NEGATIVE) Urine Bilirubin NEGATIVE (NEGATIVE) Urine Urobilinogen 0.2 (<2.0) EU/dL Ur Leukocyte Esterase TRACE H (NEGATIVE) Urine RBC 0-1 (0-2/HPF) Urine WBC 0-2 (0-5/HPF) Ur Epithelial Cells MODERATE (NONE-FEW) Urine Bacteria RARE (NEGATIVE) 02/23/20 Range/Units 13:32 WBC (4.0-11.0) K/uL RBC (4.30-5.90) M/uL Hgb (12.0-16.0) g/dL Hct (36.0-46.0) % MCV (80.0-98.0) fL MCH (27.0-32.0) pg MCHC (31.0-37.0) g/dL RDW Std Deviation (28.0-62.0) fl RDW Coeff of John (11.0-15.0) % Plt Count (150-400) K/uL MPV (7.40-12.00) fL Neut % (Auto) (48.0-80.0) % Lymph % (Auto) (16.0-40.0) % [place] % (Auto) (0.0-15.0) % Eos % (Auto) (0.0-7.0) % Baso % (Auto) (0.0-1.5) % Neut # (Auto) (1.4-5.7) K/uL Lymph # (Auto) (0.6-2.4) K/uL [place] # (Auto) (0.0-0.8) K/uL Eos # (Auto) (0.0-0.7) K/uL Baso # (Auto) (0.0-0.1) K/uL Nucleated RBC % /100WBC Nucleated RBCs # K/uL Sodium (136-145) mmol/L Potassium (3.5-5.1) mmol/L Chloride (98-107) mmol/L Carbon Dioxide (21.0-32.0) mmol/L BUN (7.0-18.0) mg/dL Creatinine (0.6-1.0) mg/dL Est Cr Clr Drug Dosing mL/min Estimated GFR (MDRD) ml/min Glucose (74-106) mg/dL Calcium (8.5-10.1) mg/dL Total Bilirubin (0.2-1.0) mg/dL AST (15-37) IU/L ALT (14-63) IU/L Alkaline Phosphatase (46-116) U/L Total Protein (6.4-8.2) g/dL Albumin (3.4-5.0) g/dL Globulin (2.6-4.0) g/dL Albumin/Globulin Ratio (0.9-1.6) HCG, Qual NEGATIVE (NEG) Urine Color Urine Appearance Urine pH (5.0-8.0) Ur Specific [place] (1.001-1.035) Urine Protein (NEGATIVE) mg/dL Urine Glucose (UA) (NEGATIVE) mg/dL Urine Ketones (NEGATIVE) mg/dL Urine Occult Blood (NEGATIVE) Urine Nitrite (NEGATIVE) Urine Bilirubin (NEGATIVE) Urine Urobilinogen (<2.0) EU/dL Ur Leukocyte Esterase (NEGATIVE) Urine RBC (0-2/HPF) Urine WBC (0-5/HPF) Ur Epithelial Cells (NONE-FEW) Urine Bacteria (NEGATIVE) Meds: Medications Discontinued Medications Generic Name Dose Route Start Last Admin Trade Name Neris PRN Reason Stop Dose Admin Sodium Chloride 1,000 mls @ 999 mls/hr 02/23/20 13:14 02/23/20 13:31 Normal Saline IV 02/23/20 14:14 999 mls/hr STAT ONE Administration Ketorolac Tromethamine 30 mg 02/23/20 15:01 02/23/20 15:13 Toradol IVPUSH 02/23/20 15:02 30 mg ONETIME ONE Administration Ondansetron HCl 4 mg 02/23/20 13:25 02/23/20 13:31 Zofran IVPUSH 02/23/20 13:26 4 mg ONETIME ONE Administration Departure - Departure Time of Disposition: 15:34 Disposition: Home, Self-Care 01 Clinical Impression: Concussion syndrome Head injury Qualifiers: Encounter type: initial encounter Qualified Code(s): S09.90XA - Unspecified injury of head, initial encounter - Discharge Information Referrals: Esme Reaves NP [Primary Care Provider] - Forms: ED Department Discharge Additional Instructions: The following information is given to patients seen in the emergency department who are being discharged to home. This information is to outline your options for follow-up care. We provide all patients seen in our emergency department with a follow-up referral. The need for follow-up, as well as the timing and circumstances, are variable depending upon the specifics of your emergency department visit. If you don't have a primary care physician on staff, we will provide you with a referral. We always advise you to contact your personal physician following an emergency department visit to inform them of the circumstance of the visit and for follow-up with them and/or the need for any referrals to a consulting specialist. The emergency department will also refer you to a specialist when appropriate. This referral assures that you have the opportunity for follow-up care with a specialist. All of these measure are taken in an effort to provide you with optimal care, which includes your follow-up. Under all circumstances we always encourage you to contact your private physician who remains a resource for coordinating your care. When calling for follow-up care, please make the office aware that this follow-up is from your recent emergency room visit. If for any reason you are refused follow-up, please contact the [facility] Emergency Department at and asked to speak to the emergency department charge nurse. [facility] [address] [place] [address] [facility] [address] [place] [id number] 1. You can alternate ibuprofen and Tylenol as directed for pain and discomfort. Follow-up with a primary care provider as discussed. Return to the ED as needed and as discussed. Sepsis Event Note (ED) - Evaluation Sepsis Screening Result: No Definite Risk - Focused Exam Vital Signs: Vital Signs Temp Pulse Resp BP Pulse Ox 02/23/20 15:00 67 17 112/64 97 02/23/20 13:01 97.5 F 77 17 134/77 98 - My Orders Last 24 Hours: My Active Orders 02/23/20 13:13 EKG Documentation Completion [RC] STAT 02/23/20 13:32 CULTURE URINE [RM] Stat - Assessment/Plan Last 24 Hours: My Active Orders 02/23/20 13:13 EKG Documentation Completion [RC] STAT 02/23/20 13:32 CULTURE URINE [RM] Stat
[2020-02-23] MEDS ORDERED: Ondansetron 4 MG/2 ML SDV IVPUSH ONE (13:25)
[2020-02-23 14:04] LABS: BLOOD UREA NITROGEN,BUN 14 mg/dL (7.0-18.0); CARBON DIOXIDE,CO2 23.6 mmol/L (21.0-32.0); CHLORIDE,CL 106 mmol/L (98-107); GLUCOSE RANDOM 124 mg/dL (74-106); SODIUM,NA 140 mmol/L (136-145)
--- NOTE | 2020-02-23 14:58 | CT ---
Head CT Technique: Multiple axial sections through the brain were obtained. Intravenous contrast was not utilized. Comparison: No prior intracranial imaging is available. Findings: Ventricles along with basal cisterns and sulci over the convexities are within normal limits for the patient's age. No abnormal parenchymal densities are seen. No evidence of intracranial hemorrhage. No midline shift or mass-effect is appreciated. Small rounded soft tissue finding is noted within the right maxillary sinus most likely representing pre-existing retention cyst. No acute mastoid sinus findings are seen. No acute calvarial abnormality is appreciated. Impression: 1. Sinus finding believed to be pre-existing as described above. 2. Nothing acute is appreciated on noncontrast head CT exam. Diagnostic code #2 This report was dictated in MDT
[2020-02-23] MEDS ORDERED: Ketorolac 30 MG/ML SDV IVPUSH ONE (15:01)
[2020-02-23 15:14] VITALS: BP 112/64; PULSE 67
--- NOTE | 2020-02-23 15:20 | CR ---
Chest: Portable view of the chest was obtained. Comparison: Prior chest x-ray of 06/30/19. Heart size and mediastinum are normal. Lungs are clear with no acute parenchymal change. Bony structures are grossly intact. Impression: 1. Nothing acute is appreciated on portable chest x-ray. Diagnostic code #1 This report was dictated in MDT
== END 2020-02-23 15:53 | disposition home or self-care (01) ==
LOC: MW.ED 12:29
DX: F07.81 Postconcussional syndrome (principal); F17.210 Nicotine dependence, cigarettes, uncomplicated; E11.9 Type 2 diabetes mellitus without complications; F41.9 Anxiety disorder, unspecified; F32.9 Major depressive disorder, single episode, unspecified; Z79.4 Long term (current) use of insulin; Z79.899 Other long term (current) drug therapy; Z88.0 Allergy status to penicillin; Z91.018 Allergy to other foods; Z88.8 Allergy status to other drugs, medicaments and biological substances; Z88.6 Allergy status to analgesic agent; Z88.5 Allergy status to narcotic agent
CPT/HCPCS: 36415; 70450; 71045; 80053; 81001; 84703; 85025; 87086; 93005; 96361; 96374; 96375; 99284; J1885; J2405; J7030; 99283

== ENCOUNTER 2020-06-26 14:47 | Emergency (ER) | payer BC ==
[2020-06-26] MEDS ORDERED: Sodium Chloride 0.9% 10 ML Syringe FLUSH PRN (15:37)
[2020-06-26] MEDS ORDERED: Sodium Chloride 0.9% 2.5 ML Syringe FLUSH PRN (15:37)
[2020-06-26 16:22] LABS: BLOOD UREA NITROGEN,BUN 15 mg/dL (7.0-18.0); CARBON DIOXIDE,CO2 19.4 mmol/L (21.0-32.0); CHLORIDE,CL 101 mmol/L (98-107); GLUCOSE RANDOM 294 mg/dL (74-106); LIPASE 55 U/L (73-393); POTASSIUM,K 3.6 mmol/L (3.5-5.1); SODIUM,NA 135 mmol/L (136-145)
--- NOTE | 2020-06-26 17:49 | EDM.PDOC ---
ED HPI GENERAL MEDICAL PROBLEM - General Chief Complaint: Flank Pain Stated Complaint: LOWER BACKPAIN Time Seen by Provider: 06/26/20 14:48 Source of Information: Reports: Patient History Limitations: Reports: No Limitations - History of Present Illness INITIAL COMMENTS - FREE TEXT/NARRATIVE: HISTORY AND PHYSICAL: History of present illness: Patient is a 40-year-old female who presents emergency room today with concern of bilateral flank pain, left side slightly worse than right. Patient states she has had a frequent history of kidney infections and was concerned that her flank pain might be another kidney infection. Patient denies any burning with urination. Patient states she has a history of PCOS and type 2 diabetes does not believe that she is as she ovulates irregularly. Her LMP was at the beginning of May although she is unsure of exact date. Patient states she also has some slight nausea but denies any vomiting. Denies any other symptoms or concerns. Patient denies fever, chills, chest pain, shortness of breath, or cough. Denies headache, neck stiff ness, change in vision, syncope, or near syncope. Denies vomiting, abdominal pain, diarrhea, constipation, or dysuria. Has not noted any blood in urine or stool. Patient has been eating and drinking appropriately. Review of systems: As per history of present illness and below otherwise all systems reviewed and negative. Past medical history: As per history of present illness and as reviewed below otherwise noncontributory. Surgical history: As per history of present illness and as reviewed below otherwise noncontributory. Social history: See social history for further information Family history: As per history of present illness and as reviewed below otherwise noncontri butory. Physical exam: General: Patient is alert, oriented, and in no acute distress. Patient sitting comfortably on exam table. Vitals stable and reviewed by me. HEENT: Atraumatic, normocephalic, pupils equal and reactive bilaterally, negative for conjunctival pallor or scleral icterus, mucous membranes moist, TMs normal bilaterally, throat clear, neck supple, nontender, trachea midline. No drooling or trismus noted. No meningeal signs. No hot potato voice noted. Lungs: Clear to auscultation, breath sounds equal bilaterally, chest nontender. Heart: S1S2, regular rate and rhythm without overt murmur Abdomen: Soft, nondistended, nontender. Negative for masses or hepatosplenomegaly. Positive for costovertebral tenderness bilaterally. Pelvis: Stable nontender. Genitourinary: Deferred. Rectal: Deferred. Skin: Intact, warm, dry. No lesions or rashes noted. Extremities: Atraumatic, negative for cords or calf pain. Neurovascular unremarkable. Neuro: Awake, alert, oriented. Cranial nerves II through XII unremarkable. Cerebellum unremarkable. Motor and sensory unremarkable throughout. Exam nonfocal. Notes: Dr. Serrano verbally involved in patient care. Patient states she did not know she was and has been trying for 10 years to get . Patient denies any vaginal bleeding, change in discharge, or abdominal pain/cramping. Patients LMP is consistent with hcg quant of 96 today, and patient is too early to see a gestational sac on US, however, cannot r/o ectopic today. Strict return precautions thoroughly discussed with patient and expresses understanding. Will place patient on expedited follow up list to be seen by women health for repeat labwork and close monitoring of symptoms. Voices understanding and is agreeable to plan of care. Denies any further qu estions or concerns at this time. Diagnostics: CBC, CMP, UA, Uhcg, hcg quant, TVUS, Retroperitoneal US Therapeutics: None Prescription: None Impression: Bilateral flank pain Positive test Plan: 1. Please start and/or continue to take your vitamin with folic acid once daily. 2. Pelvic rest until cleared by your OBGYN (no tampons, sex, etc...) 3. Follow up with your OVERHEAD IRRIGATOR on Monday as discussed. Return to the ED as needed and as discussed. 4. If you are unable to get your hcg quant redrawn by Monday, RX slip for redraw provided to you. Definitive disposition and diagnosis as appropriate pending reevaluation and review of above. L flank Pain Score (Numeric/FACES): 6 - Related Data Allergies Allergy/AdvReac Type Severity Reaction Status Date / Time acetaminophen [From Tylenol] Allergy Hives Verified 06/26/20 15:05 Antihistamines - Alkylamine Allergy Anaphylactic Verified 06/26/20 15:05 Shock Opioids - Morphine Analogues Allergy Anaphylactic Verified 06/26/20 15:05 Shock Penicillins Allergy Rash Verified 06/26/20 15:05 phenytoin sodium Allergy Hives Verified 06/26/20 15:05 [From Dilantin] phenytoin sodium extended Allergy Hives Verified 06/26/20 15:05 [From Dilantin] vanilla whitfield Allergy Rash Uncoded 02/23/20 12:58 Home Meds: Home Meds Sertraline HCl [Zoloft] 100 mg PO DAILY 05/20/17 [History] Topiramate [Topamax] 50 mg PO BID 02/04/19 [History] Albuterol Sulfate [Proair Hfa] 8.5 gm IH Q8HR PRN #1 [id number] 06/30/19 [Rx] Albuterol/Ipratropium [DuoNeb 3.0-0.5 MG/3 ML] 3 ml .XX TID PRN #1 box 06/30/19 [Rx] Insulin Detemir [Levemir] 14 units SQ DAILY 02/23/20 [History] metFORMIN [Glucophage XR] 500 mg PO BID 02/23/20 [History] Levothyroxine [Synthroid] 50 mg PO DAILY 06/26/20 [History] Phentermine HCl 06/26/20 [History] Past Medical History - Past Health History Medical/Surgical History: Denies Medical/Surgical History HEENT History: Reports: Other (See Below) Other HEENT History: wears glasses Cardiovascular History: Reports: None Respiratory History: Reports: Bronchitis, Recurrent Gastrointestinal History: Reports: None Genitourinary History: Reports: None, Pyelonephritis OVERHEAD IRRIGATOR History: Reports: Polycystic Ovaries, Musculoskeletal History: Reports: Fracture Other Musculoskeletal History: bilateral clavicles, ribs Neurological History: Reports: Headaches, Chronic, Migraines, Seizure Other Neuro History: hx of one seizure at age 19 from alcohol poisening Psychiatric History: Reports: Anxiety, Depression Endocrine/Metabolic History: Reports: Diabetes, Type II, Obesity/BMI 30+ Hematologic History: Reports: None Immunologic History: Reports: None Oncologic (Cancer) History: Reports: None Dermatologic History: Reports: None - Infectious Disease History Infectious Disease History: Reports: Chicken Pox, MRSA - Past Surgical History Head Surgeries/Procedures: Reports: None HEENT Surgical History: Reports: Myringotomy w Tube(s), Tonsillectomy Other HEENT Surgeries/Procedures: removal of lesion form eyelid Cardiovascular Surgical History: Reports: None Respiratory Surgical History: Reports: None GI Surgical History: Reports: Appendectomy Female Surgical History: Reports: None Endocrine Surgical History: Reports: None Neurological Surgical History: Reports: None Musculoskeletal Surgical History: Reports: Shoulder Surgery Oncologic Surgical History: Reports: None Dermatological Surgical History: Reports: None Social & Family History - Family History Family Medical History: No Pertinent Family History - Caffeine Use Caffeine Use: Reports: Tea - Recreational Drug Use Recreational Drug Use: No ED ROS GENERAL - Review of Systems Review Of Systems: Comprehensive ROS is negative, except as noted in HPI. ED EXAM, GENERAL - Physical Exam Exam: See Below (see dictation) Course - Vital Signs Last Recorded V/S: Last Vital Signs Temp 98 F 06/26/20 19:30 Pulse 83 06/26/20 19:30 Resp 18 06/26/20 15:08 BP 111/80 06/26/20 19:30 Pulse Ox 97 06/26/20 19:30 - Orders/Labs/Meds Orders: Active Orders 24 hr Category Date Time Status Saline Lock Insert [OM.PC] Stat Oth 06/26/20 15:37 Ordered Labs: Laboratory Tests 06/26/20 06/26/20 06/26/20 Range/Units 15:03 15:03 15:41 WBC (4.0-11.0) K/uL RBC (4.30-5.90) M/uL Hgb (12.0-16.0) g/dL Hct (36.0-46.0) % MCV (80.0-98.0) fL MCH (27.0-32.0) pg MCHC (31.0-37.0) g/dL RDW Std Deviation (28.0-62.0) fl RDW Coeff of John (11.0-15.0) % Plt Count (150-400) K/uL MPV (7.40-12.00) fL Neut % (Auto) (48.0-80.0) % Lymph % (Auto) (16.0-40.0) % [place] % (Auto) (0.0-15.0) % Eos % (Auto) (0.0-7.0) % Baso % (Auto) (0.0-1.5) % Neut # (Auto) (1.4-5.7) K/uL Lymph # (Auto) (0.6-2.4) K/uL [place] # (Auto) (0.0-0.8) K/uL Eos # (Auto) (0.0-0.7) K/uL Baso # (Auto) (0.0-0.1) K/uL Nucleated RBC % /100WBC Nucleated RBCs # K/uL VBG pH (7.31-7.41) VBG pCO2 (35-45) mmHG VBG pO2 (30-40) mmHG VBG HCO3 (22-30) mEq/L VBG Total CO2 (41-51) mmol/L VBG Base Excess (-3.0-3.0) Sodium (136-145) mmol/L Potassium (3.5-5.1) mmol/L Chloride (98-107) mmol/L Carbon Dioxide (21.0-32.0) mmol/L BUN (7.0-18.0) mg/dL Creatinine (0.6-1.0) mg/dL Est Cr Clr Drug Dosing mL/min Estimated GFR (MDRD) ml/min Glucose (74-106) mg/dL Calcium (8.5-10.1) mg/dL Total Bilirubin (0.2-1.0) mg/dL AST (15-37) IU/L ALT (14-63) IU/L Alkaline Phosphatase (46-116) U/L Total Protein (6.4-8.2) g/dL Albumin (3.4-5.0) g/dL Globulin (2.6-4.0) g/dL Albumin/Globulin Ratio (0.9-1.6) Lipase (73-393) U/L HCG, Quant 96.0 mIU/mL Urine Color YELLOW Urine Appearance CLEAR Urine pH 5.5 (5.0-8.0) Ur Specific [place] >= 1.030 (1.001-1.035) Urine Protein NEGATIVE (NEGATIVE) mg/dL Urine Glucose (UA) 500 H (NEGATIVE) mg/dL Urine Ketones NEGATIVE (NEGATIVE) mg/dL Urine Occult Blood NEGATIVE (NEGATIVE) Urine Nitrite NEGATIVE (NEGATIVE) Urine Bilirubin NEGATIVE (NEGATIVE) Urine Urobilinogen 0.2 (<2.0) EU/dL Ur Leukocyte Esterase NEGATIVE (NEGATIVE) Urine HCG, Qual POSITIVE (NEGATIVE) Blood Type 06/26/20 06/26/20 06/26/20 Range/Units 15:41 15:49 15:49 WBC 10.13 (4.0-11.0) K/uL RBC 4.96 (4.30-5.90) M/uL Hgb 14.2 (12.0-16.0) g/dL Hct 43.1 (36.0-46.0) % MCV 86.9 (80.0-98.0) fL MCH 28.6 (27.0-32.0) pg MCHC 32.9 (31.0-37.0) g/dL RDW Std Deviation 42.2 (28.0-62.0) fl RDW Coeff of John 13 (11.0-15.0) % Plt Count 312 (150-400) K/uL MPV 10.40 (7.40-12.00) fL Neut % (Auto) 71.6 (48.0-80.0) % Lymph % (Auto) 20.9 (16.0-40.0) % [place] % (Auto) 4.9 (0.0-15.0) % Eos % (Auto) 2.3 (0.0-7.0) % Baso % (Auto) 0.3 (0.0-1.5) % Neut # (Auto) 7.3 H (1.4-5.7) K/uL Lymph # (Auto) 2.1 (0.6-2.4) K/uL [place] # (Auto) 0.5 (0.0-0.8) K/uL Eos # (Auto) 0.2 (0.0-0.7) K/uL Baso # (Auto) 0.0 (0.0-0.1) K/uL Nucleated RBC % 0.0 /100WBC Nucleated RBCs # 0 K/uL VBG pH (7.31-7.41) VBG pCO2 (35-45) mmHG VBG pO2 (30-40) mmHG VBG HCO3 (22-30) mEq/L VBG Total CO2 (41-51) mmol/L VBG Base Excess (-3.0-3.0) Sodium 135 L (136-145) mmol/L Potassium 3.6 (3.5-5.1) mmol/L Chloride 101 (98-107) mmol/L Carbon Dioxide 19.4 L (21.0-32.0) mmol/L BUN 15 (7.0-18.0) mg/dL Creatinine 0.9 (0.6-1.0) mg/dL Est Cr Clr Drug Dosing 76.26 mL/min Estimated GFR (MDRD) > 60.0 ml/min Glucose 294 H (74-106) mg/dL Calcium 9.0 (8.5-10.1) mg/dL Total Bilirubin 0.3 (0.2-1.0) mg/dL AST 10 L (15-37) IU/L ALT 20 (14-63) IU/L Alkaline Phosphatase 82 (46-116) U/L Total Protein 7.1 (6.4-8.2) g/dL Albumin 3.5 (3.4-5.0) g/dL Globulin 3.6 (2.6-4.0) g/dL Albumin/Globulin Ratio 1.0 (0.9-1.6) Lipase 55 L (73-393) U/L HCG, Quant mIU/mL Urine Color Urine Appearance Urine pH (5.0-8.0) Ur Specific [place] (1.001-1.035) Urine Protein (NEGATIVE) mg/dL Urine Glucose (UA) (NEGATIVE) mg/dL Urine Ketones (NEGATIVE) mg/dL Urine Occult Blood (NEGATIVE) Urine Nitrite (NEGATIVE) Urine Bilirubin (NEGATIVE) Urine Urobilinogen (<2.0) EU/dL Ur Leukocyte Esterase (NEGATIVE) Urine HCG, Qual (NEGATIVE) Blood Type O POSITIVE 06/26/20 Range/Units 15:49 WBC (4.0-11.0) K/uL RBC (4.30-5.90) M/uL Hgb (12.0-16.0) g/dL Hct (36.0-46.0) % MCV (80.0-98.0) fL MCH (27.0-32.0) pg MCHC (31.0-37.0) g/dL RDW Std Deviation (28.0-62.0) fl RDW Coeff of John (11.0-15.0) % Plt Count (150-400) K/uL MPV (7.40-12.00) fL Neut % (Auto) (48.0-80.0) % Lymph % (Auto) (16.0-40.0) % [place] % (Auto) (0.0-15.0) % Eos % (Auto) (0.0-7.0) % Baso % (Auto) (0.0-1.5) % Neut # (Auto) (1.4-5.7) K/uL Lymph # (Auto) (0.6-2.4) K/uL [place] # (Auto) (0.0-0.8) K/uL Eos # (Auto) (0.0-0.7) K/uL Baso # (Auto) (0.0-0.1) K/uL Nucleated RBC % /100WBC Nucleated RBCs # K/uL VBG pH 7.40 (7.31-7.41) VBG pCO2 31 L (35-45) mmHG VBG pO2 61 H (30-40) mmHG VBG HCO3 19 L (22-30) mEq/L VBG Total CO2 17 L (41-51) mmol/L VBG Base Excess -4.5 L (-3.0-3.0) Sodium (136-145) mmol/L Potassium (3.5-5.1) mmol/L Chloride (98-107) mmol/L Carbon Dioxide (21.0-32.0) mmol/L BUN (7.0-18.0) mg/dL Creatinine (0.6-1.0) mg/dL Est Cr Clr Drug Dosing mL/min Estimated GFR (MDRD) ml/min Glucose (74-106) mg/dL Calcium (8.5-10.1) mg/dL Total Bilirubin (0.2-1.0) mg/dL AST (15-37) IU/L ALT (14-63) IU/L Alkaline Phosphatase (46-116) U/L Total Protein (6.4-8.2) g/dL Albumin (3.4-5.0) g/dL Globulin (2.6-4.0) g/dL Albumin/Globulin Ratio (0.9-1.6) Lipase (73-393) U/L HCG, Quant mIU/mL Urine Color Urine Appearance Urine pH (5.0-8.0) Ur Specific [place] (1.001-1.035) Urine Protein (NEGATIVE) mg/dL Urine Glucose (UA) (NEGATIVE) mg/dL Urine Ketones (NEGATIVE) mg/dL Urine Occult Blood (NEGATIVE) Urine Nitrite (NEGATIVE) Urine Bilirubin (NEGATIVE) Urine Urobilinogen (<2.0) EU/dL Ur Leukocyte Esterase (NEGATIVE) Urine HCG, Qual (NEGATIVE) Blood Type Meds: Medications Discontinued Medications Generic Name Dose Route Start Last Admin Trade Name Freq PRN Reason Stop Dose Admin Sodium Chloride 10 ml 06/26/20 15:37 Saline Flush FLUSH ASDIRECTED PRN Keep Vein Open Sodium Chloride 2.5 ml 06/26/20 15:37 Saline Flush FLUSH ASDIRECTED PRN Keep Vein Open Departure - Departure Time of Disposition: 19:09 Disposition: Home, Self-Care 01 Clinical Impression: Bilateral flank pain, Positive test - Discharge Information Instructions: Flank Pain, Adult, [id number] Referrals: PCP,None [Primary Care Provider] - Forms: ED Department Discharge Additional Instructions: The following information is given to patients seen in the emergency department who are being discharged to home. This information is to outline your options for follow-up care. We provide all patients seen in our emergency department with a follow-up referral. The need for follow-up, as well as the timing and circumstances, are variable depending upon the specifics of your emergency department visit. If you don't have a primary care physician on staff, we will provide you with a referral. We always advise you to contact your personal physician following an emergency department visit to inform them of the circumstance of the visit and for follow-up with them and/or the need for any referrals to a consulting specialist. The emergency department will also refer you to a specialist when appropriate. This referral assures that you have the opportunity for follow-up care with a specialist. All of these measure are taken in an effort to provide you with optimal care, which includes your follow-up. Under all circumstances we always encourage you to contact your private physician who remains a resource for coordinating your care. When calling for follow-up care, please make the office aware that this follow-up is from your recent emergency room visit. If for any reason you are refused follow-up, please contact the [facility] Emergency Department at and asked to speak to the emergency department charge nurse. [facility] [address] [place] [id number] [facility] [address] [place] [address] [facility] [address] [place] [address] 1. Please start and/or continue to take your vitamin with folic acid once daily. 2. Pelvic rest until cleared by your OBGYN (no tampons, sex, etc...) 3. Follow up with your OVERHEAD IRRIGATOR on Monday as discussed. Return to the ED as needed and as discussed. 4. If you are unable to get your hcg quant redrawn by Monday, RX slip for redraw provided to you. Sepsis Event Note (ED) - Evaluation Sepsis Screening Result: No Definite Risk - Focused Exam Vital Signs: Vital Signs Temp Pulse Resp BP Pulse Ox 06/26/20 19:30 98 F 83 111/80 97 06/26/20 16:00 105 H 98 06/26/20 15:40 92 119/66 95 06/26/20 15:08 96.8 F L 108 H 18 128/69 97 - My Orders Last 24 Hours: My Active Orders 06/26/20 15:37 Saline Lock Insert [OM.PC] Stat - Assessment/Plan Last 24 Hours: My Active Orders 06/26/20 15:37 Saline Lock Insert [OM.PC] Stat
--- NOTE | 2020-06-26 18:35 | US ---
Indication: Unknown dates. Pain. Technique: Sonography of the pelvis was performed. Examination was performed transvaginally. Comparison: The uterus is normal in size. The uterus measures 9.9 x 6.0 x 6.7 centimeters. There is a myoma identified. This is fundal intramural measuring 2.3 x 1.6 x 1.7 centimeters. There is no finding of an IUP. There is no gestational reaction, pseudo gestational reaction, yolk sac, pole or fluid collection identified within the uterus. There is no free fluid in the cul-de-sac. The ovaries are normal size. A cyst is associated with the left ovary measuring 2.8 x 2.3 x 2.4 centimeters. A smoothly marginated hyperechoic lesion is noted associated with the right ovary measures 1.3 x 1.3 x 1.4 centimeters. This probably represents a hemorrhagic cyst or perhaps a dermoid. This is unlikely to represent an ectopic based on its appearance. Doppler flow is noted in both ovaries without evidence of torsion. Findings: Impression: 1. Myomatous uterus 2. There is no finding of intrauterine . There is no gestational reaction, pseudo gestational reaction or direct findings of an IUP 3. No adnexal mass suspicious for an ectopic . No evidence of torsion. 4. No free fluid 5. There is a smoothly marginated hyperechoic structure associated with the left ovary which is probably a hemorrhagic cyst or a small dermoid. I doubt that this represents an ectopic based on its appearance. A follow-up scan in 6-8 weeks should be considered to see if this resolves. 6. The differential considerations regarding the are most likely demise versus very early IUP. Again no direct findings of ectopic though follow-up should be considered depending upon the quantitative beta HCG Dictated by Anurag Cramer MD @ Jun 26 2020 6:27PM Signed by Dr. Anurag Cramer @ Jun 26 2020 6:33PM
--- NOTE | 2020-06-26 18:35 | US ---
Indication: Bilateral flank pain Technique: Sonography of the kidneys was performed. Comparison: None Findings: Kidneys normal in size and configuration. No focal mass. No visible calculus. No perinephric collection. No hydronephrosis identified. The right kidney measures 12.0 x 4.3 x 5.4 centimeters and the left kidney measures 10.6 x 6.1 x 4.8 centimeters. Impression: Normal sonographic evaluation of the kidneys. Dictated by Anurag Cramer MD @ Jun 26 2020 6:33PM Signed by Dr. Anurag Cramer @ Jun 26 2020 6:34PM
[2020-06-26 19:37] VITALS: BP 111/80; PULSE 83
== END 2020-06-26 19:32 | disposition home or self-care (01) ==
LOC: MW.ED 14:47
DX: R10.9 Unspecified abdominal pain (principal); Z32.01 Encounter for pregnancy test, result positive; E11.9 Type 2 diabetes mellitus without complications; E28.2 Polycystic ovarian syndrome; F41.9 Anxiety disorder, unspecified; F32.9 Major depressive disorder, single episode, unspecified; E66.9 Obesity, unspecified; Z68.36 Body mass index [BMI] 36.0-36.9, adult; Z88.6 Allergy status to analgesic agent; Z88.5 Allergy status to narcotic agent; Z79.4 Long term (current) use of insulin; Z91.018 Allergy to other foods; Z88.0 Allergy status to penicillin; Z88.8 Allergy status to other drugs, medicaments and biological substances
CPT/HCPCS: 36415; 76770; 76770-26; 76801; 76801-26; 80053; 81003; 81025; 82803; 83690; 84702; 85025; 86900; 86901; 99284-25

== ENCOUNTER 2020-07-03 18:09 | Emergency (ER) | payer BC ==
--- NOTE | 2020-07-03 18:28 | EDM.PDOC ---
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 Haskins. Patient reports she has been having her quantitative hCGs monitored every other day since the beginning of the year. Today she went in for a lab draw and her quantitative hCG was 593. She received a phone call this evening by Dr. Haskins's nurse requesting that she come to the emergency room as Carla believes she is having an ectopic . Patient states that if it were not for the phone call she would not be here in the emergency room as she is asymptomatic. Patient denies any fever, chills, headache, change in vision, syncope or near syncope. Denies any chest pain, back pain, shortness of breath or cough. Denies any abdominal pain, nausea, vomiting, diarrhea, constipation or dysuria. Has not noted any blood in urine or stool. She denies any vaginal bleeding, discharge or pelvic pain. Patient has been eating and drinking appropriately. , P: 3. OBGYN Dr Haskins Review of systems: As per history of present illness and below otherwise all systems reviewed and negative. Past medical history: As per history of present illness and as reviewed below otherwise noncontributory. Surgical history: As per history of present illness and as reviewed below otherwise noncontributory. Social history: See social history for further information Family history: As per history of present illness and as reviewed below otherwise noncontributory. Physical exam: General: Well developed and well nourished 40 year old female. Alert and orientated x 3. Nontoxic in appearance and in no acute distress. Vital signs are stable and have been reviewed by me. Nursing notes were reviewed. HEENT: Atraumatic, normocephalic, pupils equal and reactive bilaterally, negative for conjunctival pallor or scleral icterus, mucous membranes moist, trachea midline. No drooling or trismus noted. No meningeal signs. No hot potato voice noted. Lungs: Clear to auscultation, breath sounds equal bilaterally, chest nontender. Normal work of breathing, no accessory muscles used. Heart: S1S2, regular rate and rhythm without overt murmur Abdomen: Soft, nondistended, nontender. Negative for masses or costovertebral tenderness. Pelvis: Stable nontender. Skin: Intact, warm, dry. No lesions or rashes noted. Hematologic: No petechiae or purpra. Mucosa appropriate color and normal nail bed color and refill. Extremities: Atraumatic, moves all extremities per self without difficulty or deficits, negative for cords or calf pain. Neurovascular unremarkable. Neuro: Awake, alert, oriented. Cranial nerves II through XII unremarkable. Cerebellum unremarkable. Motor and sensory unremarkable throughout. Exam nonfocal. Psychiatric: Mood and affect are appropriate. Normal thought process. Answering questions appropriately. Notes: 06/26/20: Transvaginal ultrasound shows a myomatous uterus. No evidence of IUP. No gestational reaction, pseudogestational reaction or direct findings of an IUP. No free fluid. No adnexal mass suspicious for an ectopic . No evidence of torsion. Patient's quantitative hCGs have been as follows: 06/26/20: 96, 06/29: 251, 07/01: 406, and this morning 07/03: 593. I spoke with Dr Haskins on the phone. He does not want any lab work or ultrasound repeated at this time (he has been following her closely) and he will come in and see the patient as he had already planned to come in and talk with the patient about the ectopic and her options. 1899: Dr Haskins here to see patient; he has given orders to the nurse for methotrexate IM. He would like the patient to see him on Monday and have her repeat quantitative done. After the methotrexate has been given she can be discharged home. He is does not want any additional orders or prescriptions for home. Impression: Tubal ectopic Plan: 1. Today Dr Haskins evaluated you and gave you a medication call Methotrexate. You may expect some bleeding over the weekend 2. You can alternate Tylenol and Ibuprofen as needed. 3. We encourage you to follow up with Dr Haskins for re-evaluation and further care/management: Follow up on MONDAY. You should have your Quant HCG repeated on Monday (to see if this number is going down appropriately) 4. If your symptoms should worsen, new symptoms develop or any of the signs and symptoms we discussed should arise please return to the emergency room or call 911 (if needed). Definitive disposition and diagnosis as appropriate pending reevaluation and review of above. - Related Data Allergies Allergy/AdvReac Type Severity Reaction Status Date / Time acetaminophen [From Tylenol] Allergy Hives Verified 06/26/20 15:05 Antihistamines - Alkylamine Allergy Anaphylactic Verified 06/26/20 15:05 Shock Opioids - Morphine Analogues Allergy Anaphylactic Verified 06/26/20 15:05 Shock Penicillins Allergy Rash Verified 06/26/20 15:05 phenytoin sodium Allergy Hives Verified 06/26/20 15:05 [From Dilantin] phenytoin sodium extended Allergy Hives Verified 06/26/20 15:05 [From Dilantin] vanilla whitfield Allergy Rash Uncoded 02/23/20 12:58 Home Meds: Home Meds Sertraline HCl [Zoloft] 100 mg PO DAILY 05/20/17 [History] Topiramate [Topamax] 50 mg PO BID 02/04/19 [History] Albuterol Sulfate [Proair Hfa] 8.5 gm IH Q8HR PRN #1 [email or web address] 06/30/19 [Rx] Albuterol/Ipratropium [DuoNeb 3.0-0.5 MG/3 ML] 3 ml .XX TID PRN #1 box 06/30/19 [Rx] Insulin Detemir [Levemir] 14 units SQ DAILY 02/23/20 [History] metFORMIN [Glucophage XR] 500 mg PO BID 02/23/20 [History] Levothyroxine [Synthroid] 50 mg PO DAILY 06/26/20 [History] Past Medical History - Past Health History Medical/Surgical History: Denies Medical/Surgical History HEENT History: Reports: Other (See Below) Other HEENT History: wears glasses Cardiovascular History: Reports: None Respiratory History: Reports: Bronchitis, Recurrent Gastrointestinal History: Reports: None Genitourinary History: Reports: None, Pyelonephritis 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: Reports: Polycystic Ovaries, Musculoskeletal History: Reports: Fracture Other Musculoskeletal History: bilateral clavicles, ribs Neurological History: Reports: Headaches, Chronic, Migraines, Seizure Other Neuro History: hx of one seizure at age 19 from alcohol poisening Psychiatric History: Reports: Anxiety, Depression Endocrine/Metabolic History: Reports: Diabetes, Type II, Obesity/BMI 30+ Hematologic History: Reports: None Immunologic History: Reports: None Oncologic (Cancer) History: Reports: None Dermatologic History: Reports: None - Infectious Disease History Infectious Disease History: Reports: Chicken Pox, MRSA - Past Surgical History Head Surgeries/Procedures: Reports: None HEENT Surgical History: Reports: Myringotomy w Tube(s), Tonsillectomy Other HEENT Surgeries/Procedures: removal of lesion form eyelid Cardiovascular Surgical History: Reports: None Respiratory Surgical History: Reports: None GI Surgical History: Reports: Appendectomy Female Surgical History: Reports: None Endocrine Surgical History: Reports: None Neurological Surgical History: Reports: None Musculoskeletal Surgical History: Reports: Shoulder Surgery Oncologic Surgical History: Reports: None Dermatological Surgical History: Reports: None Social & Family History - Family History Family Medical History: No Pertinent Family History - Caffeine Use Caffeine Use: Reports: Tea ED ROS GENERAL - Review of Systems Review Of Systems: Comprehensive ROS is negative, except as noted in HPI. ED EXAM - Physical Exam Exam: See Below (See dictation) Course - Vital Signs Last Recorded V/S: Last Vital Signs Temp 96.9 F 07/03/20 18:33 Pulse 92 07/03/20 18:33 Resp 16 07/03/20 18:33 BP 122/84 07/03/20 18:33 Pulse Ox 97 07/03/20 18:33 Departure - Departure Time of Disposition: 19:02 Disposition: Home, Self-Care 01 Clinical Impression: Tubal Qualifiers: Intrauterine status: without intrauterine Laterality: left Qualified Code(s): O00.102 - Left tubal without intrauterine - Discharge Information Instructions: Methotrexate Treatment for an Ectopic , Care After Referrals: Esme Reaves NP [Primary Care Provider] - Forms: ED Department Discharge Additional Instructions: The following information is given to patients seen in the emergency department who are being discharged to home. This information is to outline your options for follow-up care. We provide all patients seen in our emergency department with a follow-up referral. The need for follow-up, as well as the timing and circumstances, are variable depending upon the specifics of your emergency department visit. If you don't have a primary care physician on staff, we will provide you with a referral. We always advise you to contact your personal physician following an emergency department visit to inform them of the circumstance of the visit and for follow-up with them and/or the need for any referrals to a consulting specialist. The emergency department will also refer you to a specialist when appropriate. This referral assures that you have the opportunity for follow-up care with a specialist. All of these measure are taken in an effort to provide you with optimal care, which includes your follow-up. Under all circumstances we always encourage you to contact your private physician who remains a resource for coordinating your care. When calling for follow-up care, please make the office aware that this follow-up is from your recent emergency room visit. If for any reason you are refused follow-up, please contact the [facility] Emergency Department at and asked to speak to the emergency department charge nurse. [facility] [address] [place] [address] [place] [address] Thank you for choosing the [facility] emergency department in [place] for your medical needs today. It was a pleasure caring for you. Today you were seen in the emergency department for abnormal labs/ectopic tubal . 1. Today Dr Haskins evaluated you and gave you a medication call Methotrexate. You may expect some bleeding over the weekend 2. You can alternate Tylenol and Ibuprofen as needed. 3. We encourage you to follow up with Dr Haskins for re-evaluation and further care/management: Follow up on MONDAY. You should have your quantitative HCG repeats to make sure your number is going down appropriately. 4. If your symptoms should worsen, new symptoms develop or any of the signs and symptoms we discussed should arise please return to the emergency room or call 911 (if needed). Sepsis Event Note (ED) - Focused Exam Vital Signs: Vital Signs Temp Pulse Resp BP Pulse Ox 07/03/20 18:33 96.9 F 92 16 122/84 97
[2020-07-03 20:16] VITALS: BP 131/76; PULSE 89
--- NOTE | 2020-07-06 15:55 | CONS ---
DATE OF CONSULTATION: 07/03/2020 DATE OF : 1980 PRIMARY CARE PHYSICIAN: Esme Reaves, EVA Ms. Babb is seen in the emergency room before with a positive test and I saw her in the office with the hCG level of 406 on July 01. The patient had a repeat hCG level on July 03, it was 593. She had an ultrasound which essentially shows no intrauterine suspicious of a tubal . At the time I evaluated her in the emergency room, the patient's vital signs were stable, blood pressure, pulse, she was without any pain, without any bleeding, and we discussed the high possibility that the patient had a tubal and it is very early tubal and we discussed the modality of treatment which is IV methotrexate, observation, and possible surgery. With the advantage and disadvantage of any of this modality, the patient asked appropriate questions. All her questions were answered and after that she elected to have the methotrexate option of medical treatment, and I am giving her today 50 mg/square meter of methotrexate and I instructed the patient to come to the office and repeat her hCG level on Monday, and I also gave her the ectopic precaution just in case that she would start having severe pain or fainting or excessive vaginal bleeding, she needed to come back to the emergency room. The patient verbalized and understood these instructions. NELSY SRINIVASAN /[id number]
== END 2020-07-03 20:10 | disposition home or self-care (01) ==
LOC: MW.ED 18:09
DX: O00.102 Left tubal pregnancy without intrauterine pregnancy (principal); E11.9 Type 2 diabetes mellitus without complications; E66.9 Obesity, unspecified; Z68.36 Body mass index [BMI] 36.0-36.9, adult; Z88.6 Allergy status to analgesic agent; Z88.8 Allergy status to other drugs, medicaments and biological substances; Z79.4 Long term (current) use of insulin; Z79.899 Other long term (current) drug therapy; Z88.0 Allergy status to penicillin; Z91.018 Allergy to other foods
CPT/HCPCS: 96372; 99283; J9260; 99282

== ENCOUNTER 2021-07-15 09:54 | Emergency (ER) | payer BC ==
[2021-07-15] MEDS ORDERED: Sodium Chloride 0.9% 1,000 ML IV ONE (10:32)
[2021-07-15 11:47] LABS: BLOOD UREA NITROGEN,BUN 16 mg/dL (7.0-18.0); CARBON DIOXIDE,CO2 21.3 mmol/L (21.0-32.0); CHLORIDE,CL 104 mmol/L (98-107); GLUCOSE RANDOM 134 mg/dL (74-106); LIPASE 103 U/L (73-393); POTASSIUM,K 4.1 mmol/L (3.5-5.1); SODIUM,NA 136 mmol/L (136-145)
[2021-07-15 15:31] VITALS: BP 131/77; PULSE 79
== END 2021-07-15 13:07 | disposition home or self-care (01) ==
LOC: MW.ED 09:54
DX: O99.891 Other specified diseases and conditions complicating pregnancy (principal); R10.31 Right lower quadrant pain; O99.519 Diseases of the respiratory system complicating pregnancy, unspecified trimester; J45.909 Unspecified asthma, uncomplicated; O24.419 Gestational diabetes mellitus in pregnancy, unspecified control; O99.210 Obesity complicating pregnancy, unspecified trimester; E66.9 Obesity, unspecified; Z88.6 Allergy status to analgesic agent; Z88.8 Allergy status to other drugs, medicaments and biological substances; Z88.0 Allergy status to penicillin; Z91.018 Allergy to other foods; Z79.899 Other long term (current) drug therapy; Z79.4 Long term (current) use of insulin
CPT/HCPCS: 36415; 76801; 80053; 81003; 83690; 84702; 85025; 86900; 86901; 99284; J7030